=== PATIENT | female | born 1945 | race Caucasian/White ===

== ENCOUNTER → 2016-05-22 | Outpatient (CLI) | payer MEDICARE, OTHER ==
--- NOTE | 2016-05-23 11:00 | MM ---
Reason for exam: screening (asymptomatic). Last mammogram was performed 1 year and 1 month ago. History: Patient is postmenopausal. MG discontinued stereo core RT of the right breast, September 06, 2013. Benign right mammotome panel of the right breast, May 09, 2011. Benign left mammotome panel of the left breast, February 02, 2009. Benign right mammotome panel of the right breast, May 24, 2008. Benign stereotactic core biopsy of the left breast, January 26, 2004. Core biopsy of the left breast. Took hormonal contraceptives for 3 years beginning at age 23. Physical Findings: A clinical breast exam by your physician is recommended on an annual basis and results should be correlated with mammographic findings. MG 3D Screening Mammo W/Cad Bilateral CC and MLO view(s) were taken. Prior study comparison: April 10, 2015, bilateral MG 3d screening mammo w/cad. April 24, 2014, right breast MG diagnostic mammo RT w CAD. There are scattered fibroglandular densities. Previous mammotome biopsy in the right breast x 2 and in the left breast x 2. There also appear to be a couple clips in the right breast. Scattered calcifications are unchanged. No significant changes when compared with prior studies. ASSESSMENT: Negative, BI-RAD 1 RECOMMENDATION: Routine screening mammogram of both breasts in 1 year.
== END | disposition home or self-care (01) ==
LOC: RADMAMWWP 15:23
PROVIDERS: ATTEND Family Medicine
DX: Z12.31 Encounter for screening mammogram for malignant neoplasm of breast (principal)
CPT/HCPCS: 77063; G0202

== ENCOUNTER → 2016-09-09 | Outpatient (CLI) | payer MEDICARE, OTHER ==
--- NOTE | 2016-09-10 07:59 | US ---
EXAMINATION TYPE: US pelvic complete DATE OF EXAM: 09/09/2016 1:51 PM COMPARISON: NONE CLINICAL HISTORY: N81.4 Uterine Prolapse. Patient has had prolapse for a few months, at time of exam she stated the uterus was prolapsed and she is pending hysterectomy this September TECHNIQUE: TA Date of LMP: 15+ yrs ago EXAM MEASUREMENTS: Uterus: N/A cm Endometrial Stripe: N/A cm Right Ovary: 2.0 x 1.5 x 1.5 cm Left Ovary: N/A cm 1. Uterus: only able to visualize small portion of cervix or lower uterine segment due to prolapse o f uterus 2. Endometrium: unable to visualize 3. Right Ovary: wnl 4. Left Ovary: unable to see due to atrophy and overlying bowel 5. Bilateral Adnexa: wnl 6. Posterior cul-de-sac: wnl There is limitation of evaluation at the lower uterine segment cervical region due to the prolapse. IMPRESSION: 1. Uterine prolapse.
== END | disposition home or self-care (01) ==
LOC: RADUSWWP 13:34
PROVIDERS: ATTEND Obstetrics & Gynecology
DX: N81.4 Uterovaginal prolapse, unspecified (principal)
CPT/HCPCS: 76856

== ENCOUNTER → 2016-10-13 | Outpatient (CLI) | payer MEDICARE, OTHER ==
[2016-10-13 14:26] LABS: Basophils # (A) 0.1 k/uL (0-0.2); Basophils % (A) 1 %; CH 30.2; CHCM 31.9; Eosinophils # (A) 0.6 k/uL (0-0.7); Eosinophils % (A) 8 %; HCT 40.3 % (34.0-46.0); HDW 2.27; HGB 12.8 gm/dL (11.4-16.0); Luc # (Auto) 0.27; Luc % (Auto) 4; Lymphocytes # (A) 1.9 k/uL (1.0-4.8); Lymphocytes % (A) 24 %; MCH 30.3 pg (25.0-35.0); MCHC 31.8 g/dL (31.0-37.0); MCV 95.3 fL (80.0-100.0); Mean Platelet Volume 7.4; Monocytes # (A) 0.6 k/uL (0-1.0); Monocytes % (A) 8 %; Neutrophils # (A) 4.3 k/uL (1.3-7.7); Neutrophils % (A) 56 %; RBC 4.22 m/uL (3.80-5.40); WBC 7.7 k/uL (3.8-10.6)
[2016-10-13 14:47] LABS: Anion Gap 11 mmol/L; Blood Urea Nitrogen 20 mg/dL (7-17); Calcium 9.7 mg/dL (8.4-10.2); Carbon Dioxide 27 mmol/L (22-30); Chloride 105 mmol/L (98-107); Glucose 97 mg/dL (74-99); Non-African American GFR(MDRD) >60 (>60 ml/min/1.73 sqM); Potassium 4.8 mmol/L (3.5-5.1); Sodium 143 mmol/L (137-145)
== END | disposition home or self-care (01) ==
LOC: LABPAT 13:47
PROVIDERS: ATTEND Obstetrics & Gynecology
DX: Z01.812 Encounter for preprocedural laboratory examination (principal)
CPT/HCPCS: 80048; 85025; 86850; 86900; 86901

== ENCOUNTER 2016-10-21 05:46 | Day surgery (SDC) | payer MEDICARE, OTHER ==
[2016-10-13 16:43] VITALS: BMI 28.5
[~2016-10-21 05:46] MED LIST: DEXAMETHASONE SOD PHOSPHATE 10 MG/ML 1 ML VIAL IV ONE; HYDROmorphone 1 MG/ML 1 ML SYRINGE IVP PRN; MIDAZOLAM 2 MG/2 ML VIAL IV PRN; ONDANSETRON 4 MG/2 ML VIAL IVP ONE; ceFAZolin 2 GM in SODIUM CHLORIDE 0.9% 100 ML IVPB ONE
[2016-10-21] MEDS: LACTATED RINGERS 1,000 ML IV SCH (06:24)
[2016-10-21] MEDS ORDERED: LIDOCAINE 1% 20 ML VIAL (10MG/ML) FOR IV START INTRADERMA ONE (06:25)
[2016-10-21 06:35] LABS: Glucose,Whole Blood 93 mg/dL (75-99)
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
[2016-10-21] MEDS ORDERED: ePHEDrine 50 MG/ML 1 ML AMP ONE (07:29)
[2016-10-21] MEDS ORDERED: MIDAZOLAM 2 MG/2 ML VIAL ONE (07:29)
[2016-10-21] MEDS ORDERED: MORPHINE SULFATE (PF) 0.3 MG/0.3 ML SYR ONE (07:29)
[2016-10-21] MEDS ORDERED: GLYCOPYRROLATE 0.2 MG/ML 2 ML VIAL ONE (07:29)
[2016-10-21] MEDS ORDERED: PROPOFOL 10 MG/ML 20 ML VIAL IV ONE (07:29)
[2016-10-21] MEDS ORDERED: EPINEPHrine 1 MG/ML 1 ML AMP IV ONE (07:51)
[2016-10-21] MEDS ORDERED: MORPHINE SULFATE 2 MG/ML SYRINGE IVP PRN (08:24)
[2016-10-21] MEDS ORDERED: diphenhydrAMINE 50 MG/ML 1 ML VIAL IVP PRN (08:24)
[2016-10-21] MEDS ORDERED: NALOXONE 0.4 MG/ML 1 ML VIAL IV PRN (08:24)
[2016-10-21] MEDS ORDERED: ONDANSETRON 4 MG/2 ML VIAL IVP PRN (08:24)
[2016-10-21] MEDS ORDERED: KETOROLAC 30 MG/ML 1 ML VIAL IVP PRN ×2 (08:24→08:50)
[2016-10-21] MEDS ORDERED: LACTATED RINGERS 1,000 ML IV ONE (08:30)
[2016-10-21] MEDS ORDERED: Acetaminophen-Codeine 300-30mg TAB PO PRN ×2 (08:50)
--- NOTE | 2016-10-21 09:04 | P.OP ---
Date of Procedure: 10/21/16 Preoperative Diagnosis: Complete vaginal prolapse Postoperative Diagnosis: Same Procedure(s) Performed: Vaginal hysterectomy with anterior repair Implants: Anesthesia: spinal Surgeon: Vipin Valdez [employer] Builder #1: Sly Parra Estimated Blood Loss (ml): 75 IV fluids (ml): 900 Urine output (ml): 500 Pathology: other (Uterus, cervix, vaginal mucosa) Condition: stable Disposition: floor Indications for Procedure: Operative Findings: Complete procidentia Description of Procedure: Patient was taken to the operating suite where a spinal anesthetic was found be adequate. She was prepped and draped in the normal sterile fashion and placed in dorsal lithotomy position. Initially a weighted speculum was inserted into the vagina into lip cervix identified and grasped with single-tooth tenaculum. Dilute epinephrine solution was injected circumferentially around the cervix and a knife was used to incise this tissue. Blunt dissection the vaginal close off of the cervix was then performed. Once completed Anson was used to clamp the uterosacral/cardinal ligaments bilaterally. Tissues clamped cut and tied and then held. Moving superiorly along the lateral borders the uterus the cardinal ligaments were clamped cut and tied and the remaining vaginal close was continued to be dissected back. Due to how high the bladder was dissected quite a ways with in the cardinal ligament tissues and patient had a cervix that was approximately 4-5 cm long. HEENT easily used to clamp cut and tie all these tissues moving superiorly along the lateral borders of the uterus. Once able we were able to identify the posterior peritoneum was entered sharply with Metzenbaum scissors. This tissue was then extended and the weighted speculum was exchanged for longbilled weighted speculum. Posterior peritoneum was tacked at this point to assist in closure later Continued to dissect tissue superiorly it was noted at this point that there was peritoneum and an enterocele tissue attached to the uterus along the left border of the uterus this had to be bluntly and sharply dissected free from the uterus to be able to get to the fallopian tube area. Broad ligament tissues and size of uterus were then clamped cut and tied through the uterine vascularity up to the body of the uterus. Once able blunt dissection to the anterior peritoneum was made. A 90 angle retractor was then inserted we were then able to visualize the fallopian tube tissues and in 2 bites fallopian tube tube tissues were clamped cut and tied and were held. I was able to manually palpate both the right and left ovaries they palpated small and normal. As a were out of the normal operative field and as high as they were a decision to leave them behind is a were normal was made. Once this was completed and uterus was out we did inspect the sidewalls no bleeding is noted from any of the pedicles. Therefore peritoneum was identified and grasped with an Allis clamp and the peritoneum was closed in a pursestring fashion. Once this process was completed and continuing to see no bleeding 2 Allis clamps were used to clamp at 3-9/10 clock position across the vaginal cuff. Scissor was then used to incise this tissue following dilute epinephrine solution to allow for some hydrodissection. Scissor was then used to move superiorly through the vaginal mucosa by bluntly dissecting the tissues and then incising moving superiorly into the vagina boundaries were marked by Allis clamps once to the apex of the vaginal mucosa need to be repaired which was approximately 1-2 cm from the urethral meatus one last Allis clamp was placed and then using sharp and blunt dissection the bladder was dissected free from the vaginal mucosa for assistance and reapproximation.. Once reapproximated free from both sides 5 Cindy plication sutures were placed to reapproximate the bladder into its normal anatomic position. Excess vaginal mucosa was then trimmed and the vaginal defect was closed in a running locking fashion which also incorporated the original vaginal cuff incision. Once fully closed seeing no bleeding instruments were then removed. There was noted to be some leaking of urine from the urethra meatus. She I will have to have another discussion on potential leaking problems although she has had vaginal leaking and urge incontinence previous. Nova cath was then placed into clear yellow urine is noted. Sponge, lap, needle counts were all correct 2 and patient was then taken to the recovery room in stable and satisfactory condition.
[2016-10-21 09:12] LABS: Glucose,Whole Blood 98 mg/dL (75-99)
[2016-10-21 12:36] LABS: Glucose,Whole Blood 172 mg/dL (75-99)
[2016-10-21 17:32] LABS: Glucose,Whole Blood 166 mg/dL (75-99)
[2016-10-21] MEDS: CARVEDILOL 6.25 MG TAB PO SCH (17:43)
[2016-10-21] MEDS: metFORMIN 500 MG TAB PO SCH (17:43)
[2016-10-21] MEDS: INSULIN LISPRO (humaLOG) 300 UNIT/3 ML VIAL SQ SCH ×2 (17:43→21:03)
[2016-10-21] MEDS: ATORVASTATIN 20 MG TAB PO SCH (20:52)
[2016-10-21] MEDS: LISINOPRIL 20 MG TAB PO SCH (20:52)
[2016-10-21] MEDS: FAMOTIDINE 20 MG TAB PO SCH (20:53)
[2016-10-21] MEDS: INSULIN GLARGINE 100 UNIT/ML 10 ML VIAL SQ SCH (21:03)
[2016-10-21 21:04] LABS: Glucose,Whole Blood 166 mg/dL (75-99)
[2016-10-22 06:18] LABS: CH 29.8; CHCM 32.9; HCT 35.9 % (34.0-46.0); HDW 2.47; HGB 12.2 gm/dL (11.4-16.0); Immature Gran Flag Slight; MCHC 34.1 g/dL (31.0-37.0); Mean Platelet Volume 8.1; RBC 3.95 m/uL (3.80-5.40); RDW 14.5 % (11.5-15.5); WBC 15.2 k/uL (3.8-10.6); WBC (Perox) 16.35
[2016-10-22 07:17] LABS: Add Differential Manual Differential
[2016-10-22 07:22] LABS: Band Neutrophils % 16.5 %; Nucleated Red Blood Cells 0 /100 WBC (0-0); Total Cells Counted 200
[2016-10-22 07:24] LABS: Polychromasia Present
[2016-10-22] MEDS: INSULIN LISPRO (humaLOG) 300 UNIT/3 ML VIAL SQ SCH ×4 (07:30→20:40)
[2016-10-22 07:48] LABS: Glucose,Whole Blood 98 mg/dL (75-99)
[2016-10-22] MEDS: CARVEDILOL 6.25 MG TAB PO SCH ×2 (08:48→19:39)
[2016-10-22] MEDS: metFORMIN 500 MG TAB PO SCH ×2 (08:48→19:39)
--- NOTE | 2016-10-22 08:54 | P.PN ---
Progress Note - Text She has seen and evaluated postop day 1. Overall she appears comfortable and appears to be doing well postoperatively. Last night while she was trying to ablate she was very dizzy and she has not tried to be up this morning at. Due to her multiple medical issues I would like to keep her for 1 more day following cardiology and medicine to fully tweaked her medications that there optimized when she goes home. Her pain is well-controlled with medications were using at this time. All the questions are answered for her at this time. She is able to void. She has not passed flatus. On physical exam currently her heart is regular in her lungs are clear. Abdomen is soft and nontender positive bowel sounds are noted. Extremities are without pain. No bleeding is noted from the vagina. Assessment postop day 1. Plan continue current care.
--- NOTE | 2016-10-22 09:32 | P.PN ---
Progress Note - Text 0705 Anesthesia POD 1. Patient is status post vaginal hysterectomy with anterior repair under spinal anesthesia with intra-thecal preservative free morphine 300 g. Minimal pruritus, good post-op analgesia, and headache or other complications.
[2016-10-22] MEDS: ASPIRIN 81 MG CHEW PO SCH (10:13)
[2016-10-22] MEDS: LINAGLIPTIN 5 MG TABLET PO SCH (10:13)
[2016-10-22] MEDS: FAMOTIDINE 20 MG TAB PO SCH (10:13)
[2016-10-22] MEDS: LISINOPRIL 20 MG TAB PO SCH ×2 (10:13→20:41)
[2016-10-22] MEDS: OXYBUTYNIN XL 5 MG TAB.ER.24 PO SCH (10:13)
[2016-10-22 11:51] LABS: Hemoglobin A1C 6.9 % (4.2-6.1)
[2016-10-22 12:38] LABS: Glucose,Whole Blood 129 mg/dL (75-99)
[2016-10-22 17:32] LABS: Glucose,Whole Blood 118 mg/dL (75-99)
[2016-10-22] MEDS: LACTATED RINGERS 1,000 ML IV SCH (20:14)
[2016-10-22] MEDS: INSULIN GLARGINE 100 UNIT/ML 10 ML VIAL SQ SCH (20:40)
[2016-10-22] MEDS: ATORVASTATIN 20 MG TAB PO SCH (20:41)
[2016-10-22 20:59] LABS: Glucose,Whole Blood 141 mg/dL (75-99)
[2016-10-22 21:46] LABS: Glucose,Whole Blood 126 mg/dL (75-99)
[2016-10-23] MEDS: LACTATED RINGERS 1,000 ML IV SCH (04:21)
[2016-10-23 07:31] LABS: Glucose,Whole Blood 82 mg/dL (75-99)
[2016-10-23] MEDS: INSULIN LISPRO (humaLOG) 300 UNIT/3 ML VIAL SQ SCH (07:53)
[2016-10-23 08:32] VITALS: BP 155/73; PULSE 78; RESP 19; TEMP 97.2
[2016-10-23] MEDS ORDERED: FAMOTIDINE 20 MG TAB PO SCH (09:00)
--- NOTE | 2016-10-23 09:07 | P.DS ---
Providers Expected date of discharge: 10/23/16 Attending physician: Vipin Valdez Consults: 10/21/16 08:53 Consult Physician Urgent Consulting Provider: Jass Kirby Consult Reason/Comments: medical management Do you want consulting provider notified?: Yes 10/21/16 08:54 Consult Physician Urgent Consulting Provider: Wang Bautista Consult Reason/Comments: medical management Do you want consulting provider notified?: Yes Primary care physician: Jass [facility] Course: Dolores is doing very well postop day 2. She is involuting, voiding, and she is tolerating her diet. She is passing flatus. Vital signs are stable and afebrile. Heart regular, lungs clear, extremities without pain. She voices no complaints of vaginal bleeding. Her abdomen is soft and she has positive bowel sounds. Assessment postop day 2. Plan discharged home follow up with me in approximately 2 weeks. Discharge instructions were thoroughly reviewed with she and her daughter and all questions are answered for her prior to discharge. She is stable for discharge this time and she'll follow up with her primary care doctor in the next week for reevaluation of sugars and making sure there is no other changes that need to be made. Patient Condition at Discharge: Good Plan - Discharge Summary New Discharge Prescriptions: New Acetaminophen-Codeine 300-30mg [Tylenol #3] 1 tab PO Q4H PRN #30 tablet PRN Reason: Pain Ibuprofen [Motrin] 600 mg PO Q6HR PRN #30 tab PRN Reason: Pain No Action sitaGLIPtin [Januvia] 100 mg PO DAILY Atorvastatin Calcium [Lipitor] 20 mg PO HS Insulin Glargine [Lantus] 24 unit SQ HS Aspirin [Adult Low Dose Aspirin EC] 81 mg PO DAILY Ranitidine HCl 150 mg PO BID Vits A,C,E/Lutein/Minerals [Ocuvite with Lutein Tablet] 1 tab PO BID Nystatin 100,000 Unit/gm Powd [Mycostatin Powder] 1 applic TOPICAL BID PRN PRN Reason: Rash Glycerin/Propylene Glycol [Artificial Tears Drops] 2 drops BOTH EYES DAILY PRN PRN Reason: Dry Eye(S) metFORMIN HCL [Glucophage] 1,000 mg PO BID Tolterodine Tartrate [Detrol LA] 4 mg PO DAILY Carvedilol [Coreg] 6.25 mg PO BID Lisinopril [Zestril] 20 mg PO BID Discharge Medication List Aspirin [Adult Low Dose Aspirin EC] 81 mg PO DAILY 04/16/15 [History] Atorvastatin Calcium [Lipitor] 20 mg PO HS 04/16/15 [History] Insulin Glargine [Lantus] 24 unit SQ HS 04/16/15 [History] sitaGLIPtin [Januvia] 100 mg PO DAILY 04/16/15 [History] Ranitidine HCl 150 mg PO BID 04/18/15 [History] Glycerin/Propylene Glycol [Artificial Tears Drops] 2 drops BOTH EYES DAILY PRN 08/03/15 [History] Nystatin 100,000 Unit/gm Powd [Mycostatin Powder] 1 applic TOPICAL BID PRN 08/02 [History] Vits A,C,E/Lutein/Minerals [Ocuvite with Lutein Tablet] 1 tab PO BID 08/03/15 [ History] metFORMIN HCL [Glucophage] 1,000 mg PO BID 08/03/15 [History] Carvedilol [Coreg] 6.25 mg PO BID 10/13/16 [History] Lisinopril [Zestril] 20 mg PO BID 10/13/16 [History] Tolterodine Tartrate [Detrol LA] 4 mg PO DAILY 10/13/16 [History] Acetaminophen-Codeine 300-30mg [Tylenol #3] 1 tab PO Q4H PRN #30 tablet [Rx] Ibuprofen [Motrin] 600 mg PO Q6HR PRN #30 tab 10/23/16 [Rx]
[2016-10-23] MEDS: metFORMIN 500 MG TAB PO SCH (09:18)
[2016-10-23] MEDS: CARVEDILOL 6.25 MG TAB PO SCH (09:18)
[2016-10-23] MEDS: LISINOPRIL 20 MG TAB PO SCH (09:19)
[2016-10-23] MEDS: ASPIRIN 81 MG CHEW PO SCH (09:19)
[2016-10-23] MEDS: OXYBUTYNIN XL 5 MG TAB.ER.24 PO SCH (09:20)
[2016-10-23] MEDS: LINAGLIPTIN 5 MG TABLET PO SCH (09:21)
--- NOTE | 2016-10-24 21:11 | PN ---
This patient is status post hysterectomy. The patient is doing well. She remains hemodynamically stable. Denies any chest pain or shortness of breath. Patient has intermittent PVCs. Patient has a prior history of aortic valve replacement. Patient is asymptomatic from her PVCs. Her blood pressure is controlled. Blood pressure is not 110/70 mmHg. First and second heart sounds are normal. Lungs are clinically clear to auscultation and percussion. We will continue the current medications. Patient can be discharged home and can follow up with Dr. Nikki Bautista as an outpatient. LEELA
== END 2016-10-23 10:20 | disposition home or self-care (01) ==
LOC: OR 05:46 → EDSTATUS 07:45 → 6PED 08:56 → OR 10-23 10:20
PROVIDERS: ATTEND Obstetrics & Gynecology
DX: N81.4 Uterovaginal prolapse, unspecified (principal); E11.9 Type 2 diabetes mellitus without complications; I10 Essential (primary) hypertension; E78.5 Hyperlipidemia, unspecified; I25.10 Atherosclerotic heart disease of native coronary artery without angina pectoris; E78.00 Pure hypercholesterolemia, unspecified; Z95.2 Presence of prosthetic heart valve; I49.3 Ventricular premature depolarization; K21.9 Gastro-esophageal reflux disease without esophagitis; Z79.84 Long term (current) use of oral hypoglycemic drugs; Z79.82 Long term (current) use of aspirin; Z79.4 Long term (current) use of insulin; Z79.899 Other long term (current) drug therapy; Z88.1 Allergy status to other antibiotic agents
CPT/HCPCS: 88305; 83036; 85025; 88302; 58260; 57240; J2250; J0171; J1100; J0690; J2405; J2274; J2270; J2704; 86850; 86900; 86901; 88307

== ENCOUNTER → 2017-06-18 | Outpatient (CLI) | payer MEDICARE, OTHER ==
--- NOTE | 2017-06-22 07:54 | MM ---
Reason for exam: screening (asymptomatic). Last mammogram was performed 1 year and 1 month ago. History: Patient is postmenopausal. MG discontinued stereo core RT of the right breast, September 06, 2013. Benign right mammotome panel of the right breast, May 09, 2011. Benign left mammotome panel of the left breast, February 02, 2009. Benign right mammotome panel of the right breast, May 24, 2008. Benign stereotactic core biopsy of the left breast, January 26, 2004. Core biopsy of the left breast. Took hormonal contraceptives for 3 years beginning at age 23. Physical Findings: A clinical breast exam by your physician is recommended on an annual basis and results should be correlated with mammographic findings. MG 3D Screening Mammo W/Cad Bilateral CC and MLO view(s) were taken. Prior study comparison: May 22, 2016, bilateral MG 3d screening mammo w/cad. April 10, 2015, bilateral MG 3d screening mammo w/cad. There are scattered fibroglandular densities. No significant changes when compared with prior studies. ASSESSMENT: Benign, BI-RAD 2 RECOMMENDATION: Routine screening mammogram of both breasts in 1 year.
== END | disposition home or self-care (01) ==
LOC: RADMAMWWP 14:16
PROVIDERS: ATTEND Family Medicine
DX: Z12.31 Encounter for screening mammogram for malignant neoplasm of breast (principal)
CPT/HCPCS: 77063; 77067

== ENCOUNTER → 2018-01-14 | Outpatient (CLI) | payer MEDICARE, OTHER ==
--- NOTE | 2018-01-14 11:56 | FL ---
EXAMINATION TYPE: FL barium swallow DATE OF EXAM: 01/14/2018 CLINICAL HISTORY: Dysphagia for one year. Choking sensation of upper throat per patient. TECHNIQUE: A double contrast esophagram is performed utilizing air and barium. A total of 58 second s of fluoroscopic time was utilized during procedure. 55 spot images are saved during procedure. COMPARISON: None FINDINGS: The esophagus shows satisfactory motility and emptying into the stomach. No evidence of fi xed hiatal hernia or stricture noted. Small sliding-type hiatal hernia is visualized towards end of s tudy. No abnormal outpouching or intraluminal mass is identified. No significant gastroesophageal ref lux was seen during real time performance of this study. Incidental metallic cardiac valve and overly ing mediastinal clips are noted. IMPRESSION: Small sliding-type hiatal hernia incidentally visualized. No significant abnormality is seen to account for patient's symptoms of dysphagia.
== END | disposition home or self-care (01) ==
LOC: RADFLWHC 10:50
PROVIDERS: ATTEND Otolaryngology
DX: R13.10 Dysphagia, unspecified (principal)
CPT/HCPCS: 74220

== ENCOUNTER → 2018-09-06 | Outpatient (CLI) | payer MEDICARE, OTHER ==
--- NOTE | 2018-09-07 10:51 | MM ---
Reason for exam: screening (asymptomatic). Last mammogram was performed 1 year and 3 months ago. History: Patient is postmenopausal. MG discontinued stereo core RT of the right breast, September 06, 2013. Benign right mammotome panel of the right breast, May 09, 2011. Benign left mammotome panel of the left breast, February 02, 2009. Benign right mammotome panel of the right breast, May 24, 2008. Benign stereotactic core biopsy of the left breast, January 26, 2004. Core biopsy of the left breast. Took hormonal contraceptives for 3 years beginning at age 23. Physical Findings: A clinical breast exam by your physician is recommended on an annual basis and results should be correlated with mammographic findings. MG 3D Screening Mammo W/Cad Bilateral CC and MLO view(s) were taken. Prior study comparison: June 18, 2017, bilateral MG 3d screening mammo w/cad. May 22, 2016, bilateral MG 3d screening mammo w/cad. There are scattered fibroglandular densities. Previous mammotome biopsy in the right breast x 2 and in the left breast x 2. Stable scattered calcifications including vascular calcifications. No significant changes when compared with prior studies. ASSESSMENT: Benign, BI-RAD 2 RECOMMENDATION: Routine screening mammogram of both breasts in 1 year.
== END | disposition home or self-care (01) ==
LOC: RADMAMWWP 15:02
PROVIDERS: ATTEND Family Medicine
DX: Z12.31 Encounter for screening mammogram for malignant neoplasm of breast (principal)
CPT/HCPCS: 77063; 77067

== ENCOUNTER → 2018-09-14 | Outpatient (CLI) | payer MEDICARE, OTHER ==
--- NOTE | 2018-09-14 15:21 | US ---
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 GLAND SIZE: Right Lobe: 4.6 x 2.2 x 1.6 cm Overall Parenchyma: homogenous Left Lobe: 4.2 x 1.4 x 1.4 cm Overall Parenchyma: homogeneous Isthmus Thickness: 0.4 cm NODULES RIGHT: # of nodules measured on right: 0 LEFT: # of nodules measured on left: 1 1. 0.6 X 0.5 x 0.7 cm anechoic nodule at the mid pole with well-defined margins with peripheral ca lcification. This nodule is wider than tall and shows no intranodular vascularity. Prior size: 0.6 cm Bilateral neck scanned, no evidence of lymphadenopathy. IMPRESSION: Stable calcified subcentimeter left thyroid nodule. No new nodules are seen.
== END | disposition home or self-care (01) ==
LOC: RADUSWWP 14:31
PROVIDERS: ATTEND Family Medicine
DX: E04.1 Nontoxic single thyroid nodule (principal)
CPT/HCPCS: 76536

== ENCOUNTER 2019-03-14 09:34 | Observation (INO) | payer MEDICARE, OTHER ==
[2019-03-14] MEDS ORDERED: SODIUM CHLORIDE 0.9% 1,000 ML IV STA (10:24)
[2019-03-14] MEDS ORDERED: ENALAPRILAT 1.25 MG/ML 1 ML VIAL IVP STA ×2 (10:25→12:36)
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
[2019-03-14 11:03] LABS: Basophils # (A) 0.1 k/uL (0-0.2); Basophils % (A) 1 %; Eosinophils # (A) 0.3 k/uL (0-0.7); Eosinophils % (A) 3 %; HCT 42.5 % (34.0-46.0); HGB 13.8 gm/dL (11.4-16.0); Lymphocytes # (A) 1.6 k/uL (1.0-4.8); Lymphocytes % (A) 16 %; MCHC 32.5 g/dL (31.0-37.0); MCV 95.4 fL (80.0-100.0); Mean Platelet Volume 7.6; Monocytes # (A) 0.7 k/uL (0-1.0); Monocytes % (A) 7 %; Neutrophils # (A) 7.2 k/uL (1.3-7.7); Neutrophils % (A) 72 %; Platelet Count 193 k/uL (150-450); RBC 4.46 m/uL (3.80-5.40); RDW 14.2 % (11.5-15.5)
[2019-03-14 11:09] LABS: Appearance,Urine Cloudy (Clear); Bilirubin,Urine Negative (Negative); Blood,Urine Negative (Negative); Color,Urine Light Yellow; Glucose,Urine (UA) Negative (Negative); Ketones,Urine Negative (Negative); Leukocyte Esterase,Urine Negative (Negative); Nitrite,Urine Negative (Negative); PH, Urine 5.5 (5.0-8.0); Protein,Urine Trace (Negative); Specific Gravity,Urine 1.012 (1.001-1.035); Urobilinogen,Urine <2.0 mg/dL (<2.0)
[2019-03-14 11:15] LABS: RBC,Urine 1 /hpf (0-5); WBC,Urine 1 /hpf (0-5)
[2019-03-14 11:16] LABS: ALT 233 U/L (9-52); AST 141 U/L (14-36); African American GFR (CKD) >90 (>60 ml/min/1.73 sqM); Albumin 4.3 g/dL (3.5-5.0); Alkaline Phosphatase 178 U/L (38-126); Anion Gap 8 mmol/L; Blood Urea Nitrogen 15 mg/dL (7-17); Calcium 9.6 mg/dL (8.4-10.2); Carbon Dioxide 26 mmol/L (22-30); Chloride 109 mmol/L (98-107); Glucose 126 mg/dL (74-99); Non-African American GFR(CKD) 82 (>60 ml/min/1.73 sqM); Potassium 4.6 mmol/L (3.5-5.1); Sodium 143 mmol/L (137-145); Total Bilirubin 1.5 mg/dL (0.2-1.3); Total Protein 7.4 g/dL (6.3-8.2)
[2019-03-14 11:18] LABS: Partial Thromboplastin Time 24.3 sec (22.0-30.0); Prothrombin Time 10.7 sec (9.0-12.0)
--- NOTE | 2019-03-14 11:56 | CT ---
EXAMINATION TYPE: CT brain wo con DATE OF EXAM: 03/14/2019 COMPARISON: CT brain and cervical spine dated 04/16/2015 HISTORY: Vertigo, HTN CT DLP: 1099.4 mGycm Automated exposure control for dose reduction was used. TECHNIQUE: CT scan of the head is performed without contrast. FINDINGS: There is no acute intracranial hemorrhage or midline shift identified. Few dystrophic bas al ganglia calcifications are incidentally seen. There is diffuse ventricular and sulcal prominence c onsistent with diffuse age-related cerebral atrophy. There is low-attenuation in the periventricular white matter consistent with chronic small vessel ischemic change. The globes are intact and the vi sualized sinuses are clear. IMPRESSION: No acute intracranial hemorrhage or midline shift. There is diffuse age-related cerebra l atrophy and chronic small vessel ischemic change noted.
--- NOTE | 2019-03-14 11:57 | XR ---
EXAMINATION TYPE: XR chest 2V DATE OF EXAM: 03/14/2019 COMPARISON: Prior chest x-ray dated 08/15/2015 HISTORY: Hypertension, tachycardia, stroke symptoms TECHNIQUE: Frontal and lateral views of the chest are obtained. FINDINGS: There is no focal air space opacity, pleural effusion, or pneumothorax seen. The cardiac silhouette size is within normal limits. The osseous structures are intact. There are overlying car diac leads. Postop changes are noted to the right chest. There is cardiac valve replacement. IMPRESSION: No acute cardiopulmonary process.
[2019-03-14] MEDS ORDERED: NALOXONE 0.4 MG/ML 1 ML VIAL IV PRN (12:44)
[2019-03-14 14:01] LABS: Glucose,Whole Blood 99 mg/dL (75-99)
[2019-03-14 14:17] VITALS: BMI 28.3
--- NOTE | 2019-03-14 16:34 | US ---
EXAMINATION TYPE: US gallbladder DATE OF EXAM: 03/14/2019 COMPARISON: NONE CLINICAL HISTORY: elevated liver enzymes. Abnormal labs. No pain. NPO. EXAM MEASUREMENTS: Liver Length: 14.9 cm Gallbladder Wall: 0.2 cm CBD: 0.5 cm Right Kidney: 11.1 x 5.2 x 4.9 cm Pancreas: Main pancreatic duct= 1.3 mm. Tail obscured by overlying bowel gas. Liver: Appears coarse in echotexture throughout. Gallbladder: Multiple mobile stones. Evidence for sonographic Mckay's sign: neg CBD: wnl Right Kidney: Multiple cystic appearing lesions visualized. Largest measured, mid lateral - 1.4 x 1 .3 x 1.2 cm IMPRESSION: 1. Cholelithiasis without sonographic evidence of acute cholecystitis. 2. Coarsened echotexture of the hepatic parenchyma is nonspecific but commonly related to hepatic zahra atosis. Correlate with pulmonary function tests.
[2019-03-14] MEDS: ENALAPRILAT 1.25 MG/ML 1 ML VIAL IVP PRN ×2 (16:48→20:06)
[2019-03-14] MEDS: SODIUM CHLORIDE 0.9% 1,000 ML IV SCH (17:19)
[2019-03-14 17:43] LABS: Glucose,Whole Blood 112 mg/dL (75-99)
[2019-03-14] MEDS: CARVEDILOL 6.25 MG TAB PO SCH (18:29)
[2019-03-14] MEDS: metFORMIN 500 MG TAB PO SCH (18:29)
[2019-03-14] MEDS: LISINOPRIL 20 MG TAB PO SCH ×2 (18:29→21:06)
[2019-03-14 21:00] LABS: Glucose,Whole Blood 163 mg/dL (75-99)
[2019-03-14] MEDS: INSULIN ASPART (NovoLOG) 100 UNIT/ML VIAL SQ SCH (21:01)
[2019-03-14] MEDS: ATORVASTATIN 20 MG TAB PO SCH (21:06)
[2019-03-14] MEDS: INSULIN DETEMIR (LEVEMIR) 100 UNIT/ML SYR SQ SCH (21:06)
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
[2019-03-14] MEDS: ENOXAPARIN 40 MG/0.4 ML SYRINGE SQ SCH (22:15)
[2019-03-14] MEDS: amLODIPine 10 MG TAB PO SCH (22:15)
[2019-03-15 06:20] LABS: Albumin 3.8 g/dL (3.5-5.0); Calcium 9.3 mg/dL (8.4-10.2); Potassium 4.3 mmol/L (3.5-5.1); Total Bilirubin 1.6 mg/dL (0.2-1.3); Total Protein 6.8 g/dL (6.3-8.2)
[2019-03-15 06:25] LABS: Glucose,Whole Blood 92 mg/dL (75-99)
[2019-03-15] MEDS: INSULIN ASPART (NovoLOG) 100 UNIT/ML VIAL SQ SCH ×4 (06:27→20:33)
[2019-03-15] MEDS: CARVEDILOL 6.25 MG TAB PO SCH (06:32)
[2019-03-15] MEDS: ASPIRIN 81 MG PO SCH (08:28)
[2019-03-15] MEDS: LISINOPRIL-HCTZ 20-12.5 MG 1 EACH TAB PO SCH ×2 (08:28→20:37)
[2019-03-15] MEDS: ENOXAPARIN 40 MG/0.4 ML SYRINGE SQ SCH (08:28)
[2019-03-15] MEDS: metFORMIN 500 MG TAB PO SCH ×2 (08:29→20:37)
[2019-03-15] MEDS: amLODIPine 10 MG TAB PO SCH (08:29)
[2019-03-15] MEDS: OXYBUTYNIN XL 5 MG TAB.ER.24 PO SCH (08:29)
[2019-03-15] MEDS: LINAGLIPTIN 5 MG TABLET PO SCH (08:29)
[2019-03-15] MEDS: CHOLECALCIFEROL 1,000 UNIT TAB PO SCH (08:29)
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
--- NOTE | 2019-03-15 12:01 | ECHOF ---
Referral Reason:htn MEASUREMENTS -------- HEIGHT: 157.5 cm WEIGHT: 70.3 kg BP: 191/90 RVIDd: 2.6 cm (< 3.3) IVSd: 1.2 cm (0.6 - 1.1) LVIDd: 5.0 cm (3.9 - 5.3) LVPWd: 1.3 cm (0.6 - 1.1) IVSs: 1.3 cm LVIDs: 4.5 cm LVPWs: 1.6 cm LA Diam: 3.8 cm (2.7 - 3.8) LAESV Index (A-L): 24.66 ml/m Ao Diam: 2.5 cm (2.0 - 3.7) AV Cusp: 1.5 cm (1.5 - 2.6) MV EXCURSION: 22.560 mm (> 18.000) MV EF SLOPE: 65 mm/s (70 - 150) EPSS: 1.6 cm MV E Richardson: 0.88 m/s MV DecT: 125 ms MV A Richardson: 1.00 m/s MV E/A Ratio: 0.88 AV maxP.31 mmHg AV meanP.24 mmHg RAP: 5.00 mmHg RVSP: 25.88 mmHg FINDINGS -------- Sinus rhythm. This was a technically good study. The left ventricular size is normal. There is mild concentric left ventricular hypertrophy. Overa ll left ventricular systolic function is mild-moderately impaired with, an EF between 40 - 45 %. Gl obal hypokinesis The right ventricle is normal in size. Normal LA size by volume 22+/-6 ml/m2. The right atrium is normal in size. Interatrial and interventricular septum intact. Peak/mean gradient across the Aortic Valve is 15.31mmHg / 6.24mmHg. Normally functioning bioprosthe tic valve. The mitral valve leaflets are mildly thickened. Mild mitral annular calcification present. Mild m itral regurgitation is present. Mild tricuspid regurgitation present. Right ventricular systolic pressure is normal at < 35 mmHg. Trace/mild (physiologic) pulmonic regurgitation. The aortic root size is normal. Normal inferior vena cava with normal inspiratory collapse consistent with estimated right atrial pre ssure of 5 mmHg. There is no pericardial effusion. CONCLUSIONS -------- 1. Sinus rhythm. 2. This was a technically good study. 3. The left ventricular size is normal. 4. There is mild concentric left ventricular hypertrophy. 5. Global hypokinesis 6. The right ventricle is normal in size. 7. Normal LA size by volume 22+/-6 ml/m2. 8. The right atrium is normal in size. 9. Interatrial and interventricular septum intact. 10. Peak/mean gradient across the Aortic Valve is 15.31mmHg / 6.24mmHg. 11. Normally functioning bioprosthetic valve. 12. The mitral valve leaflets are mildly thickened. 13. Mild mitral annular calcification present. 14. Mild mitral regurgitation is present. 15. Mild tricuspid regurgitation present. 16. Right ventricular systolic pressure is normal at < 35 mmHg. 17. Trace/mild (physiologic) pulmonic regurgitation. 18. The aortic root size is normal. 19. Normal inferior vena cava with normal inspiratory collapse consistent with estimated right atrial pressure of 5 mmHg. 20. There is no pericardial effusion. DEPLOYMENT SPECIALIST: Elsy Le RDCS
[2019-03-15 12:10] LABS: Glucose,Whole Blood 92 mg/dL (75-99)
[2019-03-15 12:48] LABS: Hepatitis A Antibody IgM Non-Reactive (Non-Reactive); Hepatitis B Core IgM Non-Reactive (Non-Reactive); Hepatitis B Surface Antigen Non-Reactive (Non-Reactive); Hepatitis C IgG Antibody Non-Reactive (Non-Reactive)
[2019-03-15] MEDS: SODIUM CHLORIDE 0.9% 1,000 ML IV SCH (13:00)
[2019-03-15] MEDS: CARVEDILOL 12.5 MG TAB PO SCH (17:05)
[2019-03-15 17:07] LABS: Glucose,Whole Blood 109 mg/dL (75-99)
[2019-03-15 20:25] LABS: Glucose,Whole Blood 123 mg/dL (75-99)
[2019-03-15] MEDS: ATORVASTATIN 20 MG TAB PO SCH (20:37)
[2019-03-15] MEDS: INSULIN DETEMIR (LEVEMIR) 100 UNIT/ML SYR SQ SCH (20:37)
--- NOTE | 2019-03-15 22:27 | P.PN ---
Progress Note - Text Progress Note Date: 03/15/19 Chief Complaint: feeling unwell History of presenting complaint: This is a very pleasant 73-year-old patient of Dr. Kirby. Chronic stable medical conditions include diabetes mellitus type 2, GERD, hyperlipidemia, peripheral neuropathy, arthritis. For last 2 or 3 days patient not been feeling well. Has been feeling dizzy for one day. No chest pain no palpitation. Patient works in the [employer] and decided to leave work and go to the urgent care. Patient was discovered to have a blood pressure of 230/110. Sent down to the ER. Patient has not been steady of her medications. No new medications. Just feeling unwell. She was given IV Vasotec 1.25 mg ER. Patient does follow with Dr. 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 Has had a aortic valve replacement in the past. Admitted with hypertensive urgency. Today-feeling better. Blood pressure is better controlled. Retired. Has been out of bed. Review of systems: Was done for constitutional, cardiovascular, GI, pulmonary. relevant finding as above Active Medications Amlodipine Besylate (Norvasc) 10 mg PO DAILY [facility] Last Admin: 03/15/19 08:29 Dose: 10 mg Documented by: Aspirin (Aspirin) 81 mg PO DAILY [facility] Last Admin: 03/15/19 08:28 Dose: 81 mg Documented by: Atorvastatin Calcium (Lipitor) 20 mg PO HS [facility] Last Admin: 03/15/19 20:37 Dose: 20 mg Documented by: Carvedilol (Coreg) 12.5 mg PO AC-BID [facility] Last Admin: 03/15/19 17:05 Dose: 12.5 mg Documented by: Cholecalciferol (Vitamin D3 (25 Mcg = 1000 Iu)) 1,000 unit PO DAILY [facility] Last Admin: 03/15/19 08:29 Dose: 1,000 unit Documented by: Enalaprilat (Vasotec) 1.25 mg IVP Q4HR PRN PRN Reason: Blood Pressure - High Last Admin: 03/14/19 20:06 Dose: 1.25 mg Documented by: Enoxaparin Sodium (Lovenox) 40 mg SQ DAILY [facility] Last Admin: 03/15/19 08:28 Dose: 40 mg Documented by: Lisinopril/HCTZ (Zestoretic 20-12.5) 1 each PO BID [facility] Last Admin: 03/15/19 20:37 Dose: 1 each Documented by: Sodium Chloride (Saline 0.9%) 1,000 mls @ 10 mls/hr IV .Q24H [facility] Last Admin: 03/15/19 13:00 Dose: Not Given Documented by: Insulin Aspart (Novolog) 0 unit SQ ACHS [facility]; Protocol Last Admin: 03/15/19 20:33 Dose: Not Given Documented by: Insulin Detemir (Levemir) 24 unit SQ HS [facility] Last Admin: 03/15/19 20:37 Dose: 24 unit Documented by: Linagliptin (Tradjenta) 5 mg PO DAILY [facility] Last Admin: 03/15/19 08:29 Dose: 5 mg Documented by: Metformin HCl (Glucophage) 1,000 mg PO BID [facility] Last Admin: 03/15/19 20:37 Dose: 1,000 mg Documented by: Naloxone HCl (Narcan) 0.2 mg IV Q2M PRN PRN Reason: Opioid Reversal Oxybutynin Chloride (Ditropan Xl) 10 mg PO DAILY [facility] Last Admin: 03/15/19 08:29 Dose: 10 mg Documented by: Physical examination: VITAL SIGNS: 98.2, 69, 18, 05/11/1979, 94% room air GENERAL: [Sitting on bed,. We'll comfortable EYES: Pupils equal. Conjunctiva normal. HEENT: External appearance of nose and ears normal, oral cavity grossly normal. NECK: JVD not raised; masses not palpable. HEART: First and second heart sounds are normal; no edema. LUNGS: Respiratory rate normal; clear to auscultation. ABDOMEN: Soft, nontender, liver spleen not palpable, no masses palpable. PSYCH: Alert and oriented x3; mood and affect slightly anxiousl. MUSCULOSKELETAL: Evidence of OA especially in the hands INVESTIGATIONS, reviewed in the clinical context: White count and hemoglobin 13.8 platelets 193 progression 4.6 creatinine 0.74 Total bilirubin 1.5 AST 141 ALT 233 alkaline phosphatase 178 UA trace protein Ultrasound gallbladder-gallstones Liver possible hepatic steatosis EKG tracing personally reviewed by me-evidence of LVH with a strain Chest x-ray film personally reviewed by me-lung conley clear, warm and cardiomegaly Assessment: -Essential hypertension urgency with a feeling of unwell. No chest pain no headache. With a systolic blood pressure over 200. -Diabetes mellitus type 2 -GERD -Hyperlipidemia -Diabetic peripheral neuropathy -Primary osteoarthritis Plan: Continue current medication treatment plan. Coreg dose was increased by cardiology. We'll watch for another 24 hours to make sure the blood pressure doesn't go down too much. He remained stable to be discharged home tomorrow. Care discussed with the patient.
[2019-03-16 06:18] LABS: HCT 40.6 % (34.0-46.0); HGB 13.1 gm/dL (11.4-16.0); MCH 30.8 pg (25.0-35.0); MCHC 32.1 g/dL (31.0-37.0); MCV 95.7 fL (80.0-100.0); Mean Platelet Volume 7.6; Platelet Count 161 k/uL (150-450); RBC 4.25 m/uL (3.80-5.40); RDW 14.2 % (11.5-15.5); WBC 11.3 k/uL (3.8-10.6)
[2019-03-16 06:27] LABS: Glucose,Whole Blood 96 mg/dL (75-99)
[2019-03-16] MEDS: INSULIN ASPART (NovoLOG) 100 UNIT/ML VIAL SQ SCH ×2 (06:29→12:18)
[2019-03-16 06:33] LABS: Calcium 9.6 mg/dL (8.4-10.2); Potassium 4.2 mmol/L (3.5-5.1)
[2019-03-16] MEDS: CARVEDILOL 12.5 MG TAB PO SCH (06:34)
[2019-03-16 08:50] VITALS: RESP 18
[2019-03-16] MEDS: LISINOPRIL-HCTZ 20-12.5 MG 1 EACH TAB PO SCH (08:51)
[2019-03-16] MEDS: ENOXAPARIN 40 MG/0.4 ML SYRINGE SQ SCH (08:51)
[2019-03-16] MEDS: metFORMIN 500 MG TAB PO SCH (08:51)
[2019-03-16] MEDS: amLODIPine 10 MG TAB PO SCH (08:51)
[2019-03-16] MEDS: ASPIRIN 81 MG PO SCH (08:51)
[2019-03-16] MEDS: CHOLECALCIFEROL 1,000 UNIT TAB PO SCH (08:52)
[2019-03-16] MEDS: OXYBUTYNIN XL 5 MG TAB.ER.24 PO SCH (08:52)
[2019-03-16] MEDS: LINAGLIPTIN 5 MG TABLET PO SCH (08:52)
[2019-03-16 11:45] VITALS: BP 160/81; PULSE 63; TEMP 98
[2019-03-16] MEDS: SODIUM CHLORIDE 0.9% 1,000 ML IV SCH (11:52)
[2019-03-16 12:12] LABS: Glucose,Whole Blood 192 mg/dL (75-99)
--- NOTE | 2019-03-16 23:09 | P.DS ---
Providers Date of admission: 03/14/19 12:44 Expected date of discharge: 03/16/19 Attending physician: Owen Rasheed Consults: 03/14/19 12:44 Consult Physician Urgent Consulting Provider: Wang Bautista Consult Reason/Comments: Hypertensive urgency Do you want consulting provider notified?: Yes [facility] Course: Chief Complaint: feeling unwell Hospital course: This is a very pleasant 73-year-old patient of Dr. Kirby. Chronic stable medical conditions include diabetes mellitus type 2, GERD, hyperlipidemia, peripheral neuropathy, arthritis. For last 2 or 3 days patient not been feeling well. Has been feeling dizzy for one day. No chest pain no palpitation. Patient works in the [employer] and decided to leave work and go to the urgent care. Patient was discovered to have a blood pressure of 230/110. Sent down to the ER. Patient has not been steady of her medications. No new medications. Just feeling unwell. She was given IV Vasotec 1.25 mg ER. Patient does follow with Dr. 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 Has had a aortic valve replacement in the past. Admitted with hypertensive urgency. Medication adjusted. Doing well. Blood pressure well controlled. Up and about. Hearing Therapy Director: Dr. Ch from cardiology Physical examination: VITAL SIGNS: 98.1, 65, 18, 138/87, 97% room air GENERAL: Sitting up, comfortable EYES: Pupils equal. Conjunctiva normal. HEENT: External appearance of nose and ears normal, oral cavity grossly normal. NECK: JVD not raised; masses not palpable. HEART: First and second heart sounds are normal; no edema. LUNGS: Respiratory rate normal; clear to auscultation. ABDOMEN: Soft, nontender, liver spleen not palpable, no masses palpable. PSYCH: Alert and oriented x3; mood and affect slightly anxiousl. MUSCULOSKELETAL: Evidence of OA especially in the hands INVESTIGATIONS, reviewed in the clinical context: White count and hemoglobin 13.8 platelets 193 progression 4.6 creatinine 0.74 Total bilirubin 1.5 AST 141 ALT 233 alkaline phosphatase 178 UA trace protein Ultrasound gallbladder-gallstones Liver possible hepatic steatosis EKG tracing personally reviewed by me-evidence of LVH with a strain Chest x-ray film personally reviewed by me-lung conley clear, warm and cardiomegaly 2-D echo-EF 40-45% with global hypokinesia Assessment: -Essential hypertension urgency -Chronic congestive heart failure with systolic dysfunction EF 40-45% 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 hypertensive heart disease -Hepatic steatosis -Gallstones asymptomatic -Diabetes mellitus type 2 -GERD -Hyperlipidemia -Diabetic peripheral neuropathy -Primary osteoarthritis Disposition: Home Patient Condition at Discharge: Stable Plan - Discharge Summary Discharge Rx Participant: No New Discharge Prescriptions: New Carvedilol [Coreg*] 12.5 mg PO AC-BID #60 tab amLODIPine [Norvasc] 10 mg PO DAILY #30 tab Lisinopril-Hctz 20-12.5 mg [Zestoretic 20-12.5] 1 each PO BID #60 tab Continue sitaGLIPtin [Januvia] 100 mg PO DAILY Atorvastatin Calcium [Lipitor] 20 mg PO HS Aspirin [Adult Low Dose Aspirin EC] 81 mg PO DAILY metFORMIN HCL [Glucophage] 1,000 mg PO BID Tolterodine Tartrate [Detrol LA] 4 mg PO DAILY Cholecalciferol [Vitamin D3 (25 Mcg = 1000 Iu)] 1,000 unit PO DAILY Insulin Glargine,Hum.rec.anlog [Lantus Solostar] 24 unit SQ HS Discontinued Carvedilol [Coreg] 6.25 mg PO BID Lisinopril [Zestril] 20 mg PO BID Discharge Medication List Aspirin [Adult Low Dose Aspirin EC] 81 mg PO DAILY 04/16/15 [History] Atorvastatin Calcium [Lipitor] 20 mg PO HS 04/16/15 [History] sitaGLIPtin [Januvia] 100 mg PO DAILY 04/16/15 [History] metFORMIN HCL [Glucophage] 1,000 mg PO BID 08/03/15 [History] Tolterodine Tartrate [Detrol LA] 4 mg PO DAILY 10/13/16 [History] Cholecalciferol [Vitamin D3 (25 Mcg = 1000 Iu)] 1,000 unit PO DAILY 03/14/19 [History] Insulin Glargine,Hum.rec.anlog [Lantus Solostar] 24 unit SQ HS 03/14/19 [History] Carvedilol [Coreg*] 12.5 mg PO AC-BID #60 tab 03/16/19 [Rx] Lisinopril-Hctz 20-12.5 mg [Zestoretic 20-12.5] 1 each PO BID #60 tab 03/16/19 [Rx] amLODIPine [Norvasc] 10 mg PO DAILY #30 tab 03/16/19 [Rx] Follow up Appointment(s)/Referral(s): Wang Bautista MD [STAFF PHYSICIAN] - 03/29/19 10:30 am (Thursday with PRIVACY COMPLIANCE MANAGER) Jass Kirby DO [Primary Care Provider] - 04/12/19 8:40 am (Thursday -earliest available appointment) Discharge Disposition: HOME SELF-CARE
== END 2019-03-16 14:06 | disposition home or self-care (01) ==
LOC: EC 09:34 → 3SCARD 12:44
PROVIDERS: ADMIT Hospitalist; ATTEND Hospitalist
DX: I16.0 Hypertensive urgency (principal); E03.9 Hypothyroidism, unspecified; E11.42 Type 2 diabetes mellitus with diabetic polyneuropathy; E78.5 Hyperlipidemia, unspecified; I11.0 Hypertensive heart disease with heart failure; I25.10 Atherosclerotic heart disease of native coronary artery without angina pectoris; I44.7 Left bundle-branch block, unspecified; I50.22 Chronic systolic (congestive) heart failure; K21.9 Gastro-esophageal reflux disease without esophagitis; K76.0 Fatty (change of) liver, not elsewhere classified; K80.20 Calculus of gallbladder without cholecystitis without obstruction; M19.91 Primary osteoarthritis, unspecified site; Z79.4 Long term (current) use of insulin; Z79.82 Long term (current) use of aspirin; Z79.899 Other long term (current) drug therapy; Z80.0 Family history of malignant neoplasm of digestive organs; Z82.49 Family history of ischemic heart disease and other diseases of the circulatory system; Z90.710 Acquired absence of both cervix and uterus; Z95.2 Presence of prosthetic heart valve; Z88.3 Allergy status to other anti-infective agents; Z98.51 Tubal ligation status
CPT/HCPCS: 96376 ×2; 96372 ×2; 96361; 96374; 99285; 36415; 93005; 93306; 80053 ×2; 80048; 80074; 84450; 84460; 84484; 85025; 85027; 85610; 85730; 81001; 71046; 76705; 70450; G0378 ×3; J1650 ×2

== ENCOUNTER 2019-04-10 09:11 | Emergency (ER) | payer MEDICARE, OTHER ==
[2019-04-10 09:16] VITALS: RESP 16; TEMP 97.5
[2019-04-10] MEDS ORDERED: KETOROLAC 30 MG/ML 1 ML VIAL IM STA (09:30)
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
--- NOTE | 2019-04-10 09:46 | XR ---
EXAMINATION TYPE: XR knee complete RT , 3 VIEWS DATE OF EXAM ORDERED: 04/10/2019 HISTORY: knee pain. COMPARISON: None. FINDINGS: No fracture, dislocation or knee joint effusion is seen. There is vascular calcification p resent. IMPRESSION: NO ACUTE OSSEOUS LESION.
[2019-04-10 10:39] VITALS: BP 132/76; PULSE 76
== END 2019-04-10 10:20 | disposition home or self-care (01) ==
LOC: EC 09:11
DX: M25.561 Pain in right knee (principal); I25.10 Atherosclerotic heart disease of native coronary artery without angina pectoris; E11.42 Type 2 diabetes mellitus with diabetic polyneuropathy; E03.9 Hypothyroidism, unspecified; I10 Essential (primary) hypertension; E78.5 Hyperlipidemia, unspecified; Z79.82 Long term (current) use of aspirin; Z79.4 Long term (current) use of insulin; Z79.899 Other long term (current) drug therapy; Z88.1 Allergy status to other antibiotic agents; Z95.5 Presence of coronary angioplasty implant and graft; Z95.2 Presence of prosthetic heart valve; Z90.710 Acquired absence of both cervix and uterus
CPT/HCPCS: 73562; 96372; 99283; J1885

== ENCOUNTER → 2019-06-01 | Outpatient (CLI) | payer MEDICARE, OTHER ==
--- NOTE | 2019-06-02 07:35 | US ---
EXAMINATION TYPE: US thyroid st tissue head/neck DATE OF EXAM: 06/01/2019 COMPARISON: 09/14/2018 CLINICAL HISTORY: E04.1 Thyroid Nodule. follow up exam GLAND SIZE: Right Lobe: 4.5 x 1.1 x 2.0 cm Overall Parenchyma: heterogenous Left Lobe: 3.5 x 1.1 x 1.4 cm Overall Parenchyma: heterogeneous Isthmus Thickness: 0.3 cm NODULES RIGHT: # of nodules measured on right: 0 LEFT: # of nodules measured on left: calcification seen, as on previous, at inferior pole. This is similar in size measuring approximately 0.5 cm. ISTHMUS: # of nodules measured in the isthmus: 0 Bilateral neck scanned, no evidence of lymphadenopathy. Thyroid gland is diffusely hypervascular. IMPRESSION: Heterogenous hypervascular thyroid gland. Correlate for thyroiditis with serum laboratory values. Calcified left thyroid nodule is again stable.
== END | disposition home or self-care (01) ==
LOC: RADUSWWP 15:42
PROVIDERS: ATTEND Family Medicine
DX: E07.89 Other specified disorders of thyroid (principal); E04.1 Nontoxic single thyroid nodule
CPT/HCPCS: 76536

== ENCOUNTER 2019-07-02 13:14 | Inpatient (IN) | payer MEDICARE, OTHER ==
[2019-07-02] MEDS ORDERED: NITROGLYCERIN OINT 1 INCH/GM PACKET TOPICAL STA (13:32)
[2019-07-02] MEDS ORDERED: MORPHINE SULFATE 2 MG/ML SYRINGE IVP STA (13:32)
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
[2019-07-02 13:51] LABS: Basophils % (A) 0 %; Eosinophils # (A) 0.6 k/uL (0-0.7); Eosinophils % (A) 5 %; HCT 35.1 % (34.0-46.0); HGB 11.5 gm/dL (11.4-16.0); Lymphocytes # (A) 1.6 k/uL (1.0-4.8); Lymphocytes % (A) 15 %; MCH 30.8 pg (25.0-35.0); MCHC 32.7 g/dL (31.0-37.0); MCV 94.2 fL (80.0-100.0); Mean Platelet Volume 8.5; Monocytes # (A) 0.6 k/uL (0-1.0); Monocytes % (A) 6 %; Neutrophils # (A) 7.7 k/uL (1.3-7.7); Neutrophils % (A) 72 %; Platelet Count 217 k/uL (150-450); RBC 3.73 m/uL (3.80-5.40); RDW 14.4 % (11.5-15.5); WBC 10.7 k/uL (3.8-10.6)
[2019-07-02 14:05] LABS: D-Dimer 0.54 mg/L FEU (<0.60); INR 1.1 (<1.2); Prothrombin Time 10.9 sec (9.0-12.0)
--- NOTE | 2019-07-02 14:08 | XR ---
EXAMINATION TYPE: XR chest 2V DATE OF EXAM: 07/02/2019 COMPARISON: Chest x-ray March 14, 2019 HISTORY: Chest pain. TECHNIQUE: Frontal and lateral views of the chest are obtained. FINDINGS: Overlying EKG leads are seen. There is chronic parenchymal changes without suspicious new focal air space opacity, pleural effusion, or pneumothorax seen. The cardiac silhouette size is with in normal limits. Multilevel spurring in the spine is seen. Osseous structures are demineralized. IMPRESSION: Chronic changes without acute pulmonary process.
[2019-07-02 14:14] LABS: Albumin 4.3 g/dL (3.5-5.0); Calcium 9.5 mg/dL (8.4-10.2); Total Bilirubin 1.8 mg/dL (0.2-1.3); Total Protein 7.3 g/dL (6.3-8.2)
[2019-07-02 14:16] LABS: Partial Thromboplastin Time 20.9 sec (22.0-30.0)
[2019-07-02 14:17] LABS: Potassium 4.9 mmol/L (3.5-5.1)
[2019-07-02 14:19] LABS: Magnesium 1.5 mg/dL (1.6-2.3)
[2019-07-02] MEDS ORDERED: NITROGLYCERIN SL TABS 0.4 MG TAB SUBLINGUAL PRN (14:43)
--- NOTE | 2019-07-02 15:45 | US ---
EXAMINATION TYPE: US gallbladder DATE OF EXAM: 07/02/2019 COMPARISON: US CLINICAL HISTORY: cp, Evaluate gallbladder, liver, and pancreas. EXAM MEASUREMENTS: Liver Length: 12.7 cm Gallbladder Wall: 0.5 cm CBD: 0.6 cm Right Kidney: 11.6 x 5.1 x 4.7 cm Pancreas: limited visualization due to midline bowel gas Liver: wnl Gallbladder: thickened wall, pericholecystic fluid, small stones/sludge. Evidence for sonographic Mckay's sign: No CBD: wnl Right Kidney: cysts noted, largest measures 1.5 x 1.1 x 0.8 cm IMPRESSION: Small amount of pericholecystic fluid. Multiple small gallstones. No dilated ducts. Gallb ladder not dilated.
[2019-07-02 17:30] LABS: Glucose,Whole Blood 113 mg/dL (75-99)
[2019-07-02] MEDS: CARVEDILOL 12.5 MG TAB PO SCH (17:51)
[2019-07-02] MEDS ORDERED: NITROGLYCERIN OINT 1 INCH/GM PACKET TOPICAL SCH (18:00)
[2019-07-02] MEDS: metFORMIN 500 MG TAB PO SCH (18:09)
[2019-07-02] MEDS: LISINOPRIL-HCTZ 20-12.5 MG 1 EACH TAB PO SCH (20:02)
[2019-07-02 20:28] LABS: Glucose,Whole Blood 192 mg/dL (75-99)
[2019-07-02] MEDS ORDERED: INSULIN ASPART (NovoLOG) 100 UNIT/ML VIAL SQ SCH (21:00)
[2019-07-02] MEDS: INSULIN ASPART (NovoLOG) 100 UNIT/ML VIAL SQ SCH (22:00)
[2019-07-02] MEDS: INSULIN DETEMIR (LEVEMIR) 100 UNIT/ML SYR SQ SCH (22:02)
--- NOTE | 2019-07-02 23:41 | CONS ---
CONSULTATION Mrs. Guzman is a 74-year-old female with status post aortic valve replacement, history of mild to moderate coronary artery disease, who presented to the emergency room with symptoms of abdominal and chest discomfort. She has been followed by Dr. Bautista on a regular basis and had a stress test according to her recently that showed no evidence of inducible ischemia. She is average in exercise tolerance. No change. She has no associated chest discomfort. She had mild dyspnea on exertion. The discomfort yesterday radiated to the back. In the emergency room, she was noted to have an elevation in her liver function tests, as well as elevation of her amylase and lipase. Her total bilirubin was elevated as well. The patient denies any nausea or vomiting. She denies any diarrhea or GI bleeding. Her coronary risk factors are remarkable for diabetes, hypertension, and hyperlipidemia. She is a nonsmoker. MEDICATIONS: Include Januvia 100 mg daily, Glucophage 1 g twice a day, Zestoretic 20-12 and half twice a day, insulin, Coreg 12.5 mg twice a day, Lipitor 20 mg daily, aspirin 81 mg daily. REVIEW OF SYSTEMS: Respiratory system: She has dyspnea on exertion. No recent wheezing or cough. GI system: She denies any nausea and vomiting. No GI bleeding. system: No dysuria or hematuria. Nervous system: No stroke or seizure. PHYSICAL EXAMINATION: She is a 74-year-old female, alert, oriented, in no apparent distress. Blood pressure 145/60 with a heart rate in the 70s. HEAD: Normocephalic. Eyes sclerae nonicteric. Neck good upstroke. No bruit. No jugular venous distention. LUNGS: Clear to auscultation. HEART: Regular rhythm S1, S2. No S3 with systolic ejection murmur heard at the base, ejection type. No diastolic murmur. No rub. ABDOMEN: Soft, nontender. Positive bowel sounds. No organomegaly. EXTREMITIES: No edema. Intact distal pulses. LAB DATA: Lab data revealed a total bilirubin of 1.8 and magnesium 1.5. AST of 123, ALT of 36, amylase of 156, lipase of 434. BUN and creatinine 23 and 0.82. Potassium 4.9, hemoglobin of 11.5. EKG revealed a sinus mechanism, borderline left axis deviation and intraventricular conduction delay with no acute ST-segment changes. Her gallbladder ultrasound revealed multiple small gallstones, no dilated duct and some small amount of pericholecystic fluid. Her chest x-ray shows no acute infiltrate. IMPRESSION: 1. Chest discomfort radiating into the back with abnormal liver function tests and normal amylase and lipase consistent with pancreatitis, could be cholelithiasis, pancreatitis with the elevation of bilirubin and the abnormal ultrasound. 2. History of aortic valve replacement, appears to be stable on physical examination. 3. Mild to moderate coronary artery disease. No symptoms to suggest angina pectoris. The patient had a stress test recently that was unremarkable. 4. History of hypertension. 5. Hyperlipidemia. 6. Diabetes mellitus. RECOMMENDATIONS: From the cardiac standpoint, we will obtain repeat echocardiogram. Continue medical regimen. She will need further evaluation regarding the abnormal liver function tests and amylase and lipase. Thank you for this consult. Will follow with you. MMODL / IJN: [id number] /
[2019-07-03 06:40] LABS: Albumin 3.6 g/dL (3.5-5.0); Calcium 9.4 mg/dL (8.4-10.2); Magnesium 1.4 mg/dL (1.6-2.3); Potassium 4.2 mmol/L (3.5-5.1); Total Protein 6.4 g/dL (6.3-8.2)
[2019-07-03 07:32] LABS: Glucose,Whole Blood 89 mg/dL (75-99)
[2019-07-03] MEDS: INSULIN ASPART (NovoLOG) 100 UNIT/ML VIAL SQ SCH ×4 (08:28→20:50)
[2019-07-03] MEDS ORDERED: Magnesium Replacement Protocol 1 EACH MISC MISCELLANE PRN (08:32)
[2019-07-03] MEDS ORDERED: ASPIRIN 325 MG TAB PO SCH (09:00)
[2019-07-03] MEDS: MAGNESIUM SULFATE-D5W PMX 1 GM in DEXTROSE/WATER 1 100ML.BAG IVPB SCH ×3 (09:36→12:56)
[2019-07-03] MEDS: CYANOCOBALAMIN 500 MCG TAB PO SCH (09:40)
[2019-07-03] MEDS: OXYBUTYNIN 10 MG TAB.ER.24 PO SCH (09:40)
[2019-07-03] MEDS: LISINOPRIL-HCTZ 20-12.5 MG 1 EACH TAB PO SCH ×2 (09:40→20:53)
[2019-07-03] MEDS: metFORMIN 500 MG TAB PO SCH ×2 (09:40→17:29)
[2019-07-03] MEDS: ATORVASTATIN 20 MG TAB PO SCH (09:40)
[2019-07-03] MEDS: LINAGLIPTIN 5 MG TABLET PO SCH (09:40)
[2019-07-03] MEDS: CARVEDILOL 12.5 MG TAB PO SCH ×2 (09:40→17:29)
[2019-07-03] MEDS: ASPIRIN 81 MG PO SCH (09:40)
[2019-07-03 12:36] LABS: Glucose,Whole Blood 100 mg/dL (75-99)
--- NOTE | 2019-07-03 13:22 | P.PN ---
Subjective Progress Note Date: 07/03/19 This is a pleasant 74-year-old female patient status post aortic valve replacement, history of mild to moderate CAD. Presented to the emergency department with symptoms of abdominal and chest discomfort. She follows with Dr. ESTEPHANIA Bautista in the office and had a recent stress test which was normal according to the patient. Patient was found to have elevated liver enzymes as well as elevated amylase and lipase and total bilirubin. Ultrasound of the gallbladder showed multiple small gallstones, no dilated duct and some small amount of pericholecystic fluid. Upon examination this morning, patient is res ting comfortably in bed. She denies further complaints of chest or abdominal discomfort at this time. Repeat labs this morning show further elevation of the total total bilirubin with an AST of 547 and ALT of 301. Cardiac enzymes have been negative. Dr. Welsh has been consulted. Objective - Vital Signs Vital signs: Vital Signs Temp 97.8 F 07/03/19 04:00 Pulse 63 07/03/19 04:00 Resp 15 07/03/19 04:00 BP 125/68 07/03/19 04:00 Pulse Ox 97 07/03/19 10:30 Intake & Output 07/02/19 07/03/19 07/03/19 17:59 06:59 18:59 Intake Total 420 Balance 420 Weight Intake: Oral 420 Other: # Voids - Exam PHYSICAL EXAMINATION: HEENT: Head is atraumatic, normocephalic. Pupils equal, round. Neck is supple. There is no elevated jugular venous pressure. HEART EXAMINATION: Heart sounds regular, S1 and S2 with a systolic ejection mur mur at the base. CHEST EXAMINATION: Lungs are clear to auscultation and precussion. No chest wall tenderness is noted on palpation or with deep breathing. ABDOMEN: Soft, nontender. Bowel sounds are heard. No organomegaly noted. EXTREMITIES: 2+ peripheral pulses with no evidence of peripheral edema and no calf tenderness noted. NEUROLOGIC patient is awake, alert and oriented x3. . - Labs CBC & Chem 7: 07/02/19 13:43 07/03/19 05:42 Labs: Abnormal Lab Results - Last 24 Hours (Table) 07/02/19 07/02/19 07/02/19 Range/Units 13:43 13:43 13:54 WBC 10.7 H (3.8-10.6) k/uL RBC 3.73 L (3.80-5.40) m/uL APTT 20.9 L (22.0-30.0) sec Sodium 134 L (137-145) mmol/L BUN 23 H (7-17) mg/dL Glucose 169 H (74-99) mg/dL POC Glucose (mg/dL) (75-99) mg/dL Magnesium 1.5 L (1.6-2.3) mg/dL Total Bilirubin 1.8 H (0.2-1.3) mg/dL AST 123 H (14-36) U/L ALT 36 H (4-34) U/L HDL Cholesterol (40-60) mg/dL Amylase 156 H (30-110) U/L Lipase 434 H (23-300) U/L 07/02/19 07/02/19 07/03/19 Range/Units 17:29 20:24 05:42 WBC (3.8-10.6) k/uL RBC (3.80-5.40) m/uL APTT (22.0-30.0) sec Sodium (137-145) mmol/L BUN 22 H (7-17) mg/dL Glucose (74-99) mg/dL POC Glucose (mg/dL) 113 H 192 H (75-99) mg/dL Magnesium 1.4 L (1.6-2.3) mg/dL Total Bilirubin 2.0 H (0.2-1.3) mg/dL AST 547 H (14-36) U/L ALT 301 H (4-34) U/L HDL Cholesterol 39 L (40-60) mg/dL Amylase (30-110) U/L Lipase (23-300) U/L 07/03/19 Range/Units 12:34 WBC (3.8-10.6) k/uL RBC (3.80-5.40) m/uL APTT (22.0-30.0) sec Sodium (137-145) mmol/L BUN (7-17) mg/dL Glucose (74-99) mg/dL POC Glucose (mg/dL) 100 H (75-99) mg/dL Magnesium (1.6-2.3) mg/dL Total Bilirubin (0.2-1.3) mg/dL AST (14-36) U/L ALT (4-34) U/L HDL Cholesterol (40-60) mg/dL Amylase (30-110) U/L Lipase (23-300) U/L Assessment and Plan Assessment: #1 chest discomfort radiating into the back with abnormal liver functions and amylase and lipase consistent with pancreatitis possible cholelithiasis, surgery has been consulted #2 history of aortic valve replacement #3 mild to moderate CAD, recent negative stress test #4 history of hypertension #5 hyperlipidemia #6 diabetes mellitus Plan: From cardiology's perspective, medications reviewed and we'll continue the same. An acute coronary event has been ruled out. At this time we will follow the patient on an as-needed basis. Please do not hesitate to contact us with questions. 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 Patient was seen and examined.
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
[2019-07-03 14:18] LABS: Basophils # (A) 0.1 k/uL (0-0.2); Basophils % (A) 1 %; Eosinophils # (A) 0.5 k/uL (0-0.7); Eosinophils % (A) 8 %; HCT 35.8 % (34.0-46.0); HGB 11.8 gm/dL (11.4-16.0); Lymphocytes # (A) 1.6 k/uL (1.0-4.8); Lymphocytes % (A) 23 %; MCH 31.2 pg (25.0-35.0); MCHC 32.9 g/dL (31.0-37.0); Mean Platelet Volume 7.9; Monocytes # (A) 0.4 k/uL (0-1.0); Monocytes % (A) 6 %; Neutrophils # (A) 4.2 k/uL (1.3-7.7); Neutrophils % (A) 60 %; Platelet Count 180 k/uL (150-450); RBC 3.77 m/uL (3.80-5.40); RDW 14.4 % (11.5-15.5)
[2019-07-03 14:38] LABS: Calcium 9.8 mg/dL (8.4-10.2); Potassium 4.2 mmol/L (3.5-5.1); Total Bilirubin 2.1 mg/dL (0.2-1.3); Total Protein 6.8 g/dL (6.3-8.2)
[2019-07-03] MEDS: PIPERACILLIN-TAZOBACTAM 3.375 GM in SODIUM CHLORIDE 0.9% 100 ML IVPB SCH ×2 (15:15→20:54)
[2019-07-03 17:26] LABS: Glucose,Whole Blood 151 mg/dL (75-99)
[2019-07-03] MEDS: ENOXAPARIN 40 MG/0.4 ML SYRINGE SQ SCH (17:33)
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
[2019-07-03 20:52] LABS: Glucose,Whole Blood 127 mg/dL (75-99)
[2019-07-03] MEDS: INSULIN DETEMIR (LEVEMIR) 100 UNIT/ML SYR SQ SCH (20:53)
[2019-07-04] MEDS: INSULIN ASPART (NovoLOG) 100 UNIT/ML VIAL SQ SCH ×2 (06:25→12:52)
[2019-07-04 06:26] LABS: Glucose,Whole Blood 91 mg/dL (75-99)
[2019-07-04] MEDS: CARVEDILOL 12.5 MG TAB PO SCH (06:29)
[2019-07-04] MEDS: PIPERACILLIN-TAZOBACTAM 3.375 GM in SODIUM CHLORIDE 0.9% 100 ML IVPB SCH ×2 (06:29→15:56)
[2019-07-04] MEDS: metFORMIN 500 MG TAB PO SCH (06:29)
[2019-07-04 07:00] LABS: Albumin 3.7 g/dL (3.5-5.0); Calcium 9.2 mg/dL (8.4-10.2); Magnesium 1.9 mg/dL (1.6-2.3); Total Bilirubin 1.6 mg/dL (0.2-1.3); Total Protein 6.2 g/dL (6.3-8.2)
[2019-07-04] MEDS: LISINOPRIL-HCTZ 20-12.5 MG 1 EACH TAB PO SCH (08:45)
[2019-07-04] MEDS: ASPIRIN 81 MG PO SCH (08:45)
[2019-07-04] MEDS: ATORVASTATIN 20 MG TAB PO SCH (08:45)
[2019-07-04] MEDS: LINAGLIPTIN 5 MG TABLET PO SCH (08:45)
[2019-07-04] MEDS: ENOXAPARIN 40 MG/0.4 ML SYRINGE SQ SCH (08:45)
[2019-07-04] MEDS: OXYBUTYNIN 10 MG TAB.ER.24 PO SCH (08:45)
[2019-07-04] MEDS: CYANOCOBALAMIN 500 MCG TAB PO SCH (08:45)
--- NOTE | 2019-07-04 10:53 | P.PN ---
<Cande Romero - Last Filed: 07/04/19 10:47> Subjective Progress Note Date: 07/04/19 CHIEF COMPLAINT: Atypical chest pain HISTORY OF PRESENT ILLNESS: Patient examined this morning at the bedside. She denies abdominal pain. Tolerating diet. She reports having Iranian toast for breakfast. Denies nausea or vomiting. Passing flatus. Vital signs stable. Afebrile. Bilirubin 1.6. AST 164. ALT 210. PHYSICAL EXAM: VITALS: Reviewed CONSTITUTIONAL: Well developed and in no acute distress. EYES: Conjuctivae without sclera icterus. Pupils are equally round and reactive to light. Extraocular movements grossly intact. HEAD, EARS, NOSE, THROAT: Moist buccal mucosa. Head is atraumatic, normocephalic. Hears conversational speech. No nasal drainage. NECK: Supple. No JV distention. No thyroidomegaly. RESPIRATORY: Non-labored respirations and equal bilateral excursions. No gross wheezes. CARDIOVASCULAR: Regular rate and rhythm. Palpable 2+ radial pulses. ABDOMEN: Soft. Non-tender. Nondistended. LYMPH: No neck lymphadenopathy. No axillary lymphadenopathy. MUSCULOSKELETAL: Nail and fingers with good capillary refill. SKIN: Warm and well perfused with good skin turgor. NEUROLOGIC: Cranial nerves I through XII grossly intact. No focal or lateralizing signs. PSYCH: Appropriate affect. Alert and oriented to person, place and time. ASSESSMENT: 1. Atypical chest pain 2. Abnormal ultrasound for acute cholecystitis 3. History of aortic valvular replacement PLAN: -Continue diet as tolerated -Obtain HIDA scan per Dr. Welsh -Patient may be discharged per Dr. Welsh. She is to follow up with Dr. Welsh outpatient. Nurse practitioner note has been reviewed by physician. Signing provider agrees with the documented findings, assessment, and plan of care. Objective - Vital Signs Vital signs: Vital Signs Temp 97.5 F L 07/04/19 08:00 Pulse 72 07/04/19 08:00 Resp 16 07/04/19 08:00 BP 128/66 07/04/19 08:00 Pulse Ox 96 07/04/19 08:00 Intake & Output 07/03/19 07/04/19 07/04/19 18:59 06:59 18:59 Intake Total 2620 240 100 Balance 2620 240 100 Weight 65 kg Intake: Intake, IV Titration 400 100 Amount Magnesium Sulfate-D5w Pmx 300 1 gm In Dextrose/Water 1 100ml.bag @ 100 mls/hr IVPB Q1H AMEE Rx#: [id number] Piperacillin-Tazobactam 3 100 100 .375 gm In Sodium Chloride 0.9% 100 ml @ 25 mls/hr IVPB Q8H AMEE Rx#: [id number] Oral 2220 240 Other: # Voids 1 1 1 - Labs CBC & Chem 7: 07/03/19 14:06 07/04/19 06:08 Labs: Abnormal Lab Results - Last 24 Hours (Table) 07/03/19 07/03/19 07/03/19 Range/Units 12:34 14:06 14:06 RBC 3.77 L (3.80-5.40) m/uL BUN 19 H (7-17) mg/dL Glucose 159 H (74-99) mg/dL POC Glucose (mg/dL) 100 H (75-99) mg/dL Total Bilirubin 2.1 H (0.2-1.3) mg/dL AST 347 H (14-36) U/L ALT 265 H (4-34) U/L Total Protein (6.3-8.2) g/dL 07/03/19 07/03/19 07/04/19 Range/Units 17:21 20:50 06:08 RBC (3.80-5.40) m/uL BUN 23 H (7-17) mg/dL Glucose (74-99) mg/dL POC Glucose (mg/dL) 151 H 127 H (75-99) mg/dL Total Bilirubin 1.6 H (0.2-1.3) mg/dL AST 164 H (14-36) U/L ALT 210 H (4-34) U/L Total Protein 6.2 L (6.3-8.2) g/dL <Stacey Welsh N - Last Filed: 07/04/19 21:10> Subjective HIDA scan independently reviewed confirms no acute cholecystitis with functioning gallbladder. Patient stable for discharge with follow up as outpatient. Objective - Vital Signs Vital signs: Vital Signs Temp 97.9 F 07/04/19 11:24 Pulse 57 L 07/04/19 16:00 Resp 14 07/04/19 16:00 BP 156/88 07/04/19 11:24 Pulse Ox 96 07/04/19 08:00 Intake & Output 07/04/19 07/04/19 07/05/19 06:59 18:59 06:59 Intake Total 240 600 Balance 240 600 Weight 65 kg Intake: Intake, IV Titration 200 Amount Piperacillin-Tazobactam 3 200 .375 gm In Sodium Chloride 0.9% 100 ml @ 25 mls/hr IVPB Q8H AMEE Rx#: [id number] Oral 240 400 Other: # Voids 1 3 - Labs CBC & Chem 7: 07/03/19 14:06 07/04/19 06:08 Labs: Abnormal Lab Results - Last 24 Hours (Table) 07/02/19 07/04/19 07/04/19 Range/Units 19:09 06:08 12:49 BUN 23 H (7-17) mg/dL POC Glucose (mg/dL) 114 H (75-99) mg/dL Hemoglobin A1c 7.1 H (4.0-6.0) % Total Bilirubin 1.6 H (0.2-1.3) mg/dL AST 164 H (14-36) U/L ALT 210 H (4-34) U/L Total Protein 6.2 L (6.3-8.2) g/dL
[2019-07-04 11:25] VITALS: BP 156/88; TEMP 97.9
--- NOTE | 2019-07-04 11:27 | ECHOF ---
Referral Reason:avr MEASUREMENTS -------- HEIGHT: 157.5 cm WEIGHT: 64.9 kg BP: 118/65 RVIDd: 3.0 cm (< 3.3) IVSd: 1.0 cm (0.6 - 1.1) LVIDd: 4.7 cm (3.9 - 5.3) LVPWd: 1.3 cm (0.6 - 1.1) IVSs: 1.5 cm LVIDs: 3.4 cm LVPWs: 1.6 cm LA Diam: 3.5 cm (2.7 - 3.8) LAESV Index (A-L): 29.60 ml/m Ao Diam: 2.7 cm (2.0 - 3.7) AV Cusp: 1.8 cm (1.5 - 2.6) MV EXCURSION: 20.651 mm (> 18.000) MV EF SLOPE: 33 mm/s (70 - 150) EPSS: 1.2 cm MV E Richardson: 0.80 m/s MV DecT: 305 ms MV A Richardson: 0.96 m/s MV E/A Ratio: 0.84 AV maxP.80 mmHg AV meanP.16 mmHg RAP: 5.00 mmHg RVSP: 33.98 mmHg TAPSE: 19.18 mm FINDINGS -------- Sinus rhythm. This was a technically good study. The left ventricular size is normal. There is mild concentric left ventricular hypertrophy. Overa ll left ventricular systolic function is normal with, an EF between 55 - 60 %. The right ventricle is normal in size. LA is midly dilated 29-33ml/m2. The right atrium is normal in size. Interatrial and interventricular septum intact. There is mild aortic valve sclerosis. Trace amount of aortic regurgitation. Peak/mean gradient a cross the Aortic Valve is 16.80mmHg / 9.16mmHg. Normally functioning bioprosthetic valve. TAVR pr ocedure done The mitral valve leaflets are mildly thickened. Mild mitral regurgitation is present. Mild tricuspid regurgitation present. There is borderline pulmonary hypertension. The right ventr icular systolic pressure, as measured by Doppler, is 33.98mmHg. Trace/mild (physiologic) pulmonic regurgitation. The aortic root size is normal. Normal inferior vena cava with normal inspiratory collapse consistent with estimated right atrial pre ssure of 5 mmHg. There is no pericardial effusion. CONCLUSIONS -------- 1. Sinus rhythm. 2. This was a technically good study. 3. The left ventricular size is normal. 4. There is mild concentric left ventricular hypertrophy. 5. Overall left ventricular systolic function is normal with, an EF between 55 - 60 %. 6. The right ventricle is normal in size. 7. LA is midly dilated 29-33ml/m2. 8. The right atrium is normal in size. 9. Interatrial and interventricular septum intact. 10. There is mild aortic valve sclerosis. 11. Trace amount of aortic regurgitation. 12. Peak/mean gradient across the Aortic Valve is 16.80mmHg / 9.16mmHg. 13. Normally functioning bioprosthetic valve. 14. TAVR procedure done 15. The mitral valve leaflets are mildly thickened. 16. Mild mitral regurgitation is present. 17. Mild tricuspid regurgitation present. 18. There is borderline pulmonary hypertension. 19. The right ventricular systolic pressure, as measured by Doppler, is 33.98mmHg. 20. Trace/mild (physiologic) pulmonic regurgitation. 21. The aortic root size is normal. 22. Normal inferior vena cava with normal inspiratory collapse consistent with estimated right atrial pressure of 5 mmHg. 23. There is no pericardial effusion. STRAIN TECHNICIAN: Elsy Le RDCS
--- NOTE | 2019-07-04 12:02 | P.PN ---
Subjective Progress Note Date: 07/04/19 This is a pleasant 74-year-old female patient status post aortic valve replacement, history of mild to moderate CAD. Presented to the emergency department with symptoms of abdominal and chest discomfort. She follows with Dr. ESTEPHANIA Bautista in the office and had a recent stress test which was normal according to the patient. Patient was found to have elevated liver enzymes as well as elevated amylase and lipase and total bilirubin. Ultrasound of the gallbladder showed multiple small gallstones, no dilated duct and some small amount of pericholecystic fluid. The patient is scheduled to undergo a HIDA s can. She has been cleared for discharge from surgery perspective. They will further evaluate as an outpatient. MR perspective she may be able to be discharged home today to follow-up with Dr. Justin Bautista in the office post discharge. Objective - Vital Signs Vital signs: Vital Signs Temp 97.9 F 07/04/19 11:24 Pulse 64 07/04/19 11:24 Resp 17 07/04/19 11:24 BP 156/88 07/04/19 11:24 Pulse Ox 96 07/04/19 08:00 Intake & Output 07/03/19 07/04/19 07/04/19 18:59 06:59 18:59 Intake Total 2620 240 100 Balance 2620 240 100 Weight 65 kg Intake: Intake, IV Titration 400 100 Amount Magnesium Sulfate-D5w Pmx 300 1 gm In Dextrose/Water 1 100ml.bag @ 100 mls/hr IVPB Q1H AMEE Rx#: [id number] Piperacillin-Tazobactam 3 100 100 .375 gm In Sodium Chloride 0.9% 100 ml @ 25 mls/hr IVPB Q8H AMEE Rx#: [id number] Oral 2220 240 Other: # Voids 1 1 1 - Exam PHYSICAL EXAMINATION: HEENT: Head is atraumatic, normocephalic. Pupils equal, round. Neck is supple. There is no elevated jugular venous pressure. HEART EXAMINATION: Heart sounds regular, S1 and S2 with a systolic ejection murmur at the base. CHEST EXAMINATION: Lungs are clear to auscultation and precussion. No chest wall tenderness is noted on palpation or with deep breathing. ABDOMEN: Soft, nontender. Bowel sounds are heard. No organomegaly noted. EXTREMITIES: 2+ peripheral pulses with no evidence of peripheral edema and no calf tenderness noted. NEUROLOGIC patient is awake, alert and oriented x3. - Labs CBC & Chem 7: 07/03/19 14:06 07/04/19 06:08 Labs: Abnormal Lab Results - Last 24 Hours (Table) 07/03/19 07/03/19 07/03/19 Range/Units 12:34 14:06 14:06 RBC 3.77 L (3.80-5.40) m/uL BUN 19 H (7-17) mg/dL Glucose 159 H (74-99) mg/dL POC Glucose (mg/dL) 100 H (75-99) mg/dL Total Bilirubin 2.1 H (0.2-1.3) mg/dL AST 347 H (14-36) U/L ALT 265 H (4-34) U/L Total Protein (6.3-8.2) g/dL 07/03/19 07/03/19 07/04/19 Range/Units 17:21 20:50 06:08 RBC (3.80-5.40) m/uL BUN 23 H (7-17) mg/dL Glucose (74-99) mg/dL POC Glucose (mg/dL) 151 H 127 H (75-99) mg/dL Total Bilirubin 1.6 H (0.2-1.3) mg/dL AST 164 H (14-36) U/L ALT 210 H (4-34) U/L Total Protein 6.2 L (6.3-8.2) g/dL Assessment and Plan Plan: Assessment and plan: #1 chest discomfort radiating into the back with abnormal liver functions and amylase and lipase consistent with pancreatitis possible cholelithiasis, surgery has risk requested a HIDA scan, cleared for discharge by them #2 history of aortic valve replacement #3 mild to moderate CAD, recent negative stress test #4 history of hypertension #5 hyperlipidemia #6 diabetes mellitus Plan From cardiology's perspective, we will continue this patient on her current medications. He'll make her a follow-up appointment to see Dr. ESTEPHANIA Bautista in the office post discharge. DNP note has been reviewed, I agree with a documented findings and plan of care. Patient was seen and examined.
[2019-07-04 12:44] VITALS: RESP 14
[2019-07-04 12:45] LABS: Hemoglobin A1C 7.1 % (4.0-6.0)
[2019-07-04 12:51] LABS: Glucose,Whole Blood 114 mg/dL (75-99)
--- NOTE | 2019-07-04 16:22 | NM ---
EXAMINATION TYPE: NM hepatobiliary w CCK DATE OF EXAM: 07/04/2019 COMPARISON: Ultrasound 07/02/2019 HISTORY: 74-year-old female with gallstones and epigastric pain. TECHNIQUE: After the intravenous administration of 5.22 mCi Tc 99m Mebrofenin hepatobiliary scintigra phy is performed. Immediate images post injection. FINDINGS: There is satisfactory initial accumulation of tracer by the liver. The gallbladder is visualized wit hin 12 minutes. The small bowel activity is noted within 16 minutes. At one hour CCK was administer ed, patient was injected with 1.31 mcg of Kinevac, and gallbladder ejection fraction is calculated at 75 %, in the upper limits of the normal range. Therefore there is no scintigraphic evidence of cyst ic or common bile duct obstruction to suggest acute cholecystitis or gallbladder dyskinesia. IMPRESSION: 1. No scintigraphic evidence for acute/chronic cholecystitis or biliary dyskinesia. 2. Gallbladder ejection fraction is upper limits of the normal range at 75%.
[2019-07-04 17:23] VITALS: PULSE 57
--- NOTE | 2019-07-04 17:23 | P.DS ---
Providers Date of admission: 07/04/19 08:17 Expected date of discharge: 07/04/19 Attending physician: Owen Rasheed Consults: 07/02/19 14:43 Consult Physician Urgent Consulting Provider: Wang Bautista Consult Reason/Comments: cp Do you want consulting provider notified?: Yes 07/03/19 08:36 Consult Physician Routine Consulting Provider: Stacey Welsh Consult Reason/Comments: gallstones Do you want consulting provider notified?: Yes Primary care physician: [facility] Course: Chief Complaint: Abdominal pain Chief Complaint: feeling unwell History of presenting complaint: This is a very pleasant 74-year-old patient of Dr. Kirby. Chronic stable medical conditions include diabetes mellitus type 2, GERD, hyperlipidemia, peripheral neuropathy, arthritis. Patient presents with upper abdominal pain going across into the back. No nausea vomiting. No fever no chills. Does a concern in the ER over cardiac involvement has patient was admitted. Patient has known gallstones in the past. Subsequently after admission abdominal pain, resolved. It is felt to be from gallstones. LFTs, bumped up. Patient's presentation was not felt to be cardiac. Today-no further abdominal pain. LFTs are coming on. Had a HIDA scan ordered by surgery. Came back to be negative. Patient's feeling well. Consultation: Dr. Loli Elias from general surgery Dr. Birch from cardiology Physical examination: VITAL SIGNS: 97.9, 64, 17, 156/88, 96% on room air GENERAL: BMI 26.3, sitting up, not in distress. EYES: Pupils equal. Conjunctiva normal. HEENT: External appearance of nose and ears normal, oral cavity grossly normal. NECK: JVD not raised; masses not palpable. HEART: First and second heart sounds are normal; no edema. LUNGS: Respiratory rate normal; clear to auscultation. ABDOMEN: Soft, nontender, liver spleen not palpable, no masses palpable. PSYCH: Alert and oriented x3; mood and affect slightly anxiousl. INVESTIGATIONS, reviewed in the clinical context: Potassium 4, bilirubin 1.6, AST 164, ALT 210 HIDA scan-negative. Previous testing White count 10.7 hemoglobin 11.5 platelets 217 potassium 4.9 creatinine 0.82 Total bilirubin 1.8 AST 123 ALT 36-repeat LFT show bilirubin of 2.0 AST 547 ALT 301 Amylase 156 lipase 434 Assessment: -Symptomatic gallstones with element of mild obstruction with LFTs going up., Now LFTs are coming down -Mild gallstone pancreatitis -Chronic congestive heart failure with systolic dysfunction EF 40-45% 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 hypertensive heart disease -Hepatic steatosis -Diabetes mellitus type 2 -GERD -Hyperlipidemia -Diabetic peripheral neuropathy -Primary osteoarthritis Disposition: Home Patient Condition at Discharge: Stable Plan - Discharge Summary Discharge Rx Participant: No New Discharge Prescriptions: New Amoxicillin/Potassium Clav [Augmentin 875-125 Tablet] 1 tab PO Q12HR #10 tab Continue sitaGLIPtin [Januvia] 100 mg PO DAILY Atorvastatin Calcium [Lipitor] 20 mg PO DAILY Aspirin [Adult Low Dose Aspirin EC] 81 mg PO HS metFORMIN HCL [Glucophage] 1,000 mg PO BID Tolterodine Tartrate [Detrol LA] 4 mg PO DAILY Cholecalciferol [Vitamin D3 (25 Mcg = 1000 Iu)] 2,000 unit PO DAILY Insulin Glargine,Hum.rec.anlog [Lantus Solostar] 24 unit SQ HS Carvedilol [Coreg*] 12.5 mg PO AC-BID #60 tab Multivitamins, Thera [Multivitamin (formulary)] 1 tab PO DAILY Cyanocobalamin (Vitamin B-12) [Vitamin B-12] 1,000 mcg PO DAILY Lisinopril-Hctz 20-12.5 mg [Zestoretic 20-12.5] 1 tab PO BID Discharge Medication List Aspirin [Adult Low Dose Aspirin EC] 81 mg PO HS 04/16/15 [History] Atorvastatin Calcium [Lipitor] 20 mg PO DAILY 04/16/15 [History] sitaGLIPtin [Januvia] 100 mg PO DAILY 04/16/15 [History] metFORMIN HCL [Glucophage] 1,000 mg PO BID 08/03/15 [History] Tolterodine Tartrate [Detrol LA] 4 mg PO DAILY 10/13/16 [History] Cholecalciferol [Vitamin D3 (25 Mcg = 1000 Iu)] 2,000 unit PO DAILY 03/14/19 [History] Insulin Glargine,Hum.rec.anlog [Lantus Solostar] 24 unit SQ HS 03/14/19 [History] Carvedilol [Coreg*] 12.5 mg PO AC-BID #60 tab 03/16/19 [Rx] Cyanocobalamin (Vitamin B-12) [Vitamin B-12] 1,000 mcg PO DAILY 07/02/19 [History] Lisinopril-Hctz 20-12.5 mg [Zestoretic 20-12.5] 1 tab PO BID 07/02/19 [History] Multivitamins, Thera [Multivitamin (formulary)] 1 tab PO DAILY 07/02/19 [History] Amoxicillin/Potassium Clav [Augmentin 875-125 Tablet] 1 tab PO Q12HR #10 tab 07/04/19 [Rx] Follow up Appointment(s)/Referral(s): Wang Bautista MD [STAFF PHYSICIAN] - As Needed Jass Kirby DO [Primary Care Provider] - 07/11/19 2:40 pm Stacey Welsh MD [STAFF PHYSICIAN] - 1 Week () Patient Instructions/Handouts: Cholecystitis (ED), Gallstones (DC), Low Fat Diet (DC)
== END 2019-07-04 17:57 | disposition home or self-care (01) | DRG 444 ==
LOC: EC 13:14 → 3SCARD 14:43 → OBSVTOIN 07-04 08:17
PROVIDERS: ADMIT Hospitalist; ATTEND Hospitalist
DX: K80.21 Calculus of gallbladder without cholecystitis with obstruction (principal); K85.10 Biliary acute pancreatitis without necrosis or infection; I50.22 Chronic systolic (congestive) heart failure; I44.7 Left bundle-branch block, unspecified; I25.10 Atherosclerotic heart disease of native coronary artery without angina pectoris; K76.0 Fatty (change of) liver, not elsewhere classified; K21.9 Gastro-esophageal reflux disease without esophagitis; Z87.440 Personal history of urinary (tract) infections; E11.42 Type 2 diabetes mellitus with diabetic polyneuropathy; E78.5 Hyperlipidemia, unspecified; I11.0 Hypertensive heart disease with heart failure; M19.91 Primary osteoarthritis, unspecified site; Z79.82 Long term (current) use of aspirin; Z79.84 Long term (current) use of oral hypoglycemic drugs; Z79.899 Other long term (current) drug therapy; Z80.0 Family history of malignant neoplasm of digestive organs; Z82.49 Family history of ischemic heart disease and other diseases of the circulatory system; Z82.3 Family history of stroke; Z90.710 Acquired absence of both cervix and uterus; Z95.2 Presence of prosthetic heart valve; Z60.2 Problems related to living alone; Z98.51 Tubal ligation status
CPT/HCPCS: 36415; 71046; 76705; 78227; 80053; 80061; 82150; 83036; 83690; 83735; 84484; 85025; 85379; 85610; 85730; 93306; 99285

== ENCOUNTER → 2019-10-12 | Outpatient (CLI) | payer MEDICARE, OTHER ==
--- NOTE | 2019-10-13 10:42 | MM ---
Reason for exam: screening (asymptomatic). Last mammogram was performed 1 year and 1 month ago. History: Patient is postmenopausal. MG discontinued stereo core RT of the right breast, September 06, 2013. Benign right mammotome panel of the right breast, May 09, 2011. Benign left mammotome panel of the left breast, February 02, 2009. Benign right mammotome panel of the right breast, May 24, 2008. Benign stereotactic core biopsy of the left breast, January 26, 2004. Core biopsy of the left breast. Took hormonal contraceptives for 3 years beginning at age 23. Physical Findings: A clinical breast exam by your physician is recommended on an annual basis and results should be correlated with mammographic findings. MG 3D Screening Mammo W/Cad Bilateral CC and MLO view(s) were taken. Prior study comparison: September 06, 2018, bilateral MG 3d screening mammo w/cad. June 18, 2017, bilateral MG 3d screening mammo w/cad. The breast tissue is heterogeneously dense. This may lower the sensitivity of mammography. Previous mammotome biopsy in the right breast x 3 and in the left breast x 2. Benign vascular and fat necrosis calcifications. No significant changes when compared with prior studies. ASSESSMENT: Benign, BI-RAD 2 RECOMMENDATION: Routine screening mammogram of both breasts in 1 year.
== END | disposition home or self-care (01) ==
LOC: RADMAMWWP 07:01
PROVIDERS: ATTEND Family Medicine
DX: Z12.31 Encounter for screening mammogram for malignant neoplasm of breast (principal)
CPT/HCPCS: 77063; 77067

== ENCOUNTER → 2019-11-30 | Outpatient (CLI) | payer MEDICARE, OTHER ==
--- NOTE | 2019-11-30 09:17 | US ---
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 Thyroid nodules GLAND SIZE: Right Lobe: 4.8 x 2.0 x 1.5 cm Overall Parenchyma: heterogenous Left Lobe: 4.2 x 1.5 x 1.4 cm Overall Parenchyma: heterogeneous Isthmus Thickness: 0.4 cm NODULES RIGHT: # of nodules measured on right: 1 1. 1.3 X 0.6 x 1.1 cm hypoechoic mixed nodule at the upper pole with poorly defined margins. This n odule is wider than tall and shows intranodular vascularity. Prior size: Not previously measured. A subtle similar area may have been present. This appears mor e well-defined on the current exam imaging. 2. 0.2cm calcification inferior pole LEFT: # of nodules measured on left: 0 1. 0.4cm calcification inferior pole ISTHMUS: # of nodules measured in the isthmus: 0 Bilateral neck scanned, no evidence of lymphadenopathy. Heterogeneous gland with ill defined right lobe nodule and bilateral calcifications. IMPRESSION: 1. Right lobe thyroid nodule
== END | disposition home or self-care (01) ==
LOC: RADUSWWP 08:35
PROVIDERS: ATTEND Family Medicine
DX: E04.1 Nontoxic single thyroid nodule (principal)
CPT/HCPCS: 76536

== ENCOUNTER → 2020-09-25 | Outpatient (CLI) | payer MEDICARE, OTHER ==
--- NOTE | 2020-09-25 17:00 | US ---
EXAMINATION TYPE: US thyroid st tissue head/neck DATE OF EXAM: 09/25/2020 COMPARISON: US CLINICAL HISTORY: E04.1 Nontoxic thyroid nodule. GLAND SIZE: Right Lobe: 4.7 x 1.4 x 1.9 cm Overall Parenchyma: homogenous Left Lobe: 4.5 x 1.3 x 1.3 cm Overall Parenchyma: homogeneous Isthmus Thickness: 0.3 cm NODULES RIGHT: # of nodules measured on right: 3 1. 1.6 X 0.9 x 0.5 cm, upper pole, mixed cystic and solid, hypoechoic nodule, which is wider than t all, with ill-defined margins, without echogenic foci. TI-RADS 4 Prior size: 1.3 x 0.6 x 1.1 cm 2. 0.2 X 0.2 x 0.1 cm, lower pole, solid, hyperechoic nodule, which is wider than tall, with ill-de fined margins, and is echogenic focus. This may be a calcification. Prior size: 0.2 cm 3. 0.3 X 0.3 x 0.2 cm, mid pole, spongiform, hypoechoic nodule, which is wider than tall, with ill- defined margins, without echogenic foci. Spongiform nodule. Prior size: not seen LEFT: # of nodules measured on left: 1 1. 0.5 X 0.4 x 0.3 cm, lower pole, solid, hyperechoic nodule, which is wider than tall, with smooth margins, and is echogenic focus. This is likely a calcification. Prior size: 0.4cm ISTHMUS: # of nodules measured in the isthmus: 0 Bilateral neck scanned: superior to right thyroid lymph node is seen = 0.8 x 0.6 x 0.3cm. IMPRESSION: 1. 1.6 cm mixed cystic/solid hypoechoic nodule in the right lobe of the thyroid gland is a TI RADS 4 nodule. This is amenable to ultrasound-guided fine-needle aspiration with thin criteria. This is slig htly larger than prior exam. 2. Bilateral thyroid calcifications. 3. Superior to the right lobe of the thyroid gland there is a lymph node measuring 8 mm. This is like ly reactive. 2017 ACR TI-RADS LEVEL: 4 *Highest TI-RADS level nodule reported
== END | disposition home or self-care (01) ==
LOC: RADUSWWP 15:31
PROVIDERS: ATTEND Family Medicine
DX: E04.1 Nontoxic single thyroid nodule (principal); E04.2 Nontoxic multinodular goiter
CPT/HCPCS: 76536

== ENCOUNTER → 2020-10-17 | Outpatient (CLI) | payer MEDICARE, OTHER ==
--- NOTE | 2020-10-18 10:08 | MM ---
Reason for exam: screening (asymptomatic). Last mammogram was performed 1 year ago. History: Patient is postmenopausal. MG discontinued stereo core RT of the right breast, September 06, 2013. Benign right mammotome panel of the right breast, May 09, 2011. Benign left mammotome panel of the left breast, February 02, 2009. Benign right mammotome panel of the right breast, May 24, 2008. Benign stereotactic core biopsy of the left breast, January 26, 2004. Core biopsy of the left breast. Took hormonal contraceptives for 3 years beginning at age 23. Physical Findings: A clinical breast exam by your physician is recommended on an annual basis and results should be correlated with mammographic findings. MG 3D Screening Mammo W/Cad Bilateral CC and MLO view(s) were taken. Prior study comparison: October 12, 2019, bilateral MG 3d screening mammo w/cad. September 06, 2018, bilateral MG 3d screening mammo w/cad. There are scattered fibroglandular densities. Bilateral biospy clips. ASSESSMENT: Benign, BI-RAD 2 RECOMMENDATION: Routine screening mammogram of both breasts in 1 year.
== END | disposition home or self-care (01) ==
LOC: RADMAMWWP 07:38
PROVIDERS: ATTEND Family Medicine
DX: Z12.31 Encounter for screening mammogram for malignant neoplasm of breast (principal); Z78.0 Asymptomatic menopausal state
CPT/HCPCS: 77063; 77067

== ENCOUNTER → 2021-07-19 | Outpatient (CLI) | payer MEDICARE ==
--- NOTE | 2021-07-21 20:43 | US ---
EXAMINATION TYPE: US thyroid st tissue head/neck DATE OF EXAM: 07/19/2021 COMPARISON: NONE CLINICAL HISTORY: E04.1 SINGLE THYROID NODULE. Thyroid nodule GLAND SIZE: Right Lobe: 4.2 x 2.0 x 1.5 cm Overall Parenchyma: heterogenous Left Lobe: 4.1 x 1.4 x 1.4 cm Overall Parenchyma: heterogeneous Isthmus Thickness: .4 cm NODULES RIGHT: # of nodules measured on right: 2 1. 1.4 X .7 x 1.3 cm, upper , solid or almost completely solid, hypoechoic nodule, which is wider than tall, with ill-defined margins, without echogenic foci. TR 4 Prior size: 1.6 x .9 x .5 cm LEFT: # of nodules measured on left: 1 1. .6 X .5 x .6 cm, lower , , hyperechoic nodule, which is wider than tall, with smooth margins, wi thout echogenic foci. Prior size: .5 x .4 x .3 cm ISTHMUS: # of nodules measured in the isthmus: 0 Bilateral neck scanned, no evidence of lymphadenopathy. IMPRESSION: 1. Moderately suspicious nodule right lobe thyroid. Fine-needle aspiration recommended 2017 ACR TI-RADS LEVEL: TR-RADS 4 - Moderately Suspicious: Follow if > 1 cm, FNA if > 1.5 cm *Highest TI-RADS level nodule reported
== END | disposition home or self-care (01) ==
LOC: RADUSWWP 13:32
PROVIDERS: ATTEND Family Medicine
DX: E04.2 Nontoxic multinodular goiter (principal)
CPT/HCPCS: 76536

== ENCOUNTER → 2022-04-05 | Outpatient (CLI) | payer MEDICARE ==
--- NOTE | 2022-04-07 08:09 | MR ---
EXAMINATION TYPE: MR kidney wo/w con DATE OF EXAM: 04/05/2022 1:18 PM INDICATION: Patient age:Female; 76 years old; Reason for study: N28.1 CYST OF KIDNEY, ACQUIRED;. CYST OF KIDNEY, ACQUIRED COMPARISON: CT scan abdomen from none. TECHNIQUE: Multiplanar multi-sequence imaging was performed without contrast. Post contrast imaging was performed. IV Contrast: 7 cc Gadavist FINDINGS: LOWER CHEST: The heart is mildly enlarged for size. ABDOMEN Liver: Unremarkable. Gallbladder and Bile ducts: Unremarkable. Pancreas: Unremarkable. Spleen: Unremarkable. Adrenal glands: Unremarkable. Kidneys: Right: Right renal cysts which are high T2 low T1 signal measuring up to 2.0 cm. There is a intrinsic high T1 signal cysts measuring 5 mm posteriorly without postcontrast enhancement on subtraction imag ing. No evidence of hydronephrosis. Left: Left renal cysts are high T2 low T1 signal measuring up to 2.4 centers. There is a left intrins ic high T1 signal cysts measuring 5 mm without postcontrast enhancement on subtraction imaging. No ev idence of hydronephrosis. Stomach and Bowel: Unremarkable as visualized. Peritoneum: No evidence of pneumoperitoneum, free fluid, or adenopathy. Vasculature: Unremarkable. No aortic aneurysm. Abdominal wall: Unremarkable. Musculoskeletal: The osseous structures appear intact. IMPRESSION: Bilateral renal cysts consistent with Bosniak type I/II cysts.
== END | disposition home or self-care (01) ==
LOC: RADMRIMAIN 11:42
PROVIDERS: ATTEND Urology
DX: N28.1 Cyst of kidney, acquired (principal)
CPT/HCPCS: 74183; A9585

== ENCOUNTER → 2022-09-05 | Outpatient (CLI) | payer MEDICARE ==
--- NOTE | 2022-09-05 10:09 | US ---
EXAMINATION TYPE: US abdomen complete DATE OF EXAM: 09/05/2022 COMPARISON: US 2019, MR kidney 04/05/2022 CLINICAL INDICATION: Female, 77 years old with history of D69.59 SECONDARY THROMBOCYTOPENIA; Patient states no symptoms TECHNIQUE: Multiple sonographic images of the abdomen are obtained. FINDINGS: EXAM MEASUREMENTS: Liver Length: 13.4 cm Gallbladder Wall: 0.2 cm CBD: 0.5 cm Spleen: 8.8 cm Right Kidney: 11.4 x 5.2 x 5.2 cm Left Kidney: 10.2 x 5.2 x 5.0 cm Pancreas: visualized portions wnl, limited by overlying midline bowel gas Liver: wnl Gallbladder: cholelithiasis Evidence for sonographic Mckay's sign: no CBD: wnl Spleen: visualized portions wnl, limited by overlying bowel gas Right Kidney: multiple anechoic areas with largest measuring 2.2cm lateral mid pole Left Kidney: multiple anechoic areas with largest measuring 1.6cm superior pole Upper IVC: wnl Abd Aorta: wnl The liver is homogenous. The intrahepatic portion of the IVC and proximal abdominal aorta are within normal limits. Cholelithiasis demonstrated. No pericholecystic fluid or wall thickening involving t he gallbladder. Common bile duct is unremarkable. The visualized portions of the pancreas are homoge nous. The spleen is unremarkable. Kidneys are symmetric and free of hydronephrosis. Multiple simple to minimally complex cysts within both kidneys. IMPRESSION: 1. No acute process. 2. Multiple simple to minimally complex renal cysts. 3. Cholelithiasis.
== END | disposition home or self-care (01) ==
LOC: RADUSWWP 07:03
PROVIDERS: ATTEND Internal Medicine Hematology & Oncology
DX: K80.20 Calculus of gallbladder without cholecystitis without obstruction (principal); N28.1 Cyst of kidney, acquired; D69.59 Other secondary thrombocytopenia; M12.9 Arthropathy, unspecified; E11.9 Type 2 diabetes mellitus without complications; I10 Essential (primary) hypertension; I67.89 Other cerebrovascular disease; E78.5 Hyperlipidemia, unspecified
CPT/HCPCS: 76700

== ENCOUNTER 2022-11-17 13:58 | Emergency (ER) | payer MEDICARE ==
[2022-11-17 14:43] VITALS: TEMP 98.4
[2022-11-17] MEDS ORDERED: SODIUM CHLORIDE 0.9% 1,000 ML IV STA (15:13)
[2022-11-17] MEDS ORDERED: MECLIZINE 12.5 MG TAB PO STA (15:13)
[2022-11-17] MEDS ORDERED: METOCLOPRAMIDE 5 MG/ML 2 ML VIAL IVP STA (15:13)
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
[2022-11-17 16:06] LABS: Basophils # (A) 0.1 k/uL (0-0.2); Basophils % (A) 1 %; Eosinophils # (A) 0.4 k/uL (0-0.7); Eosinophils % (A) 4 %; HCT 47.3 % (34.0-46.0); HGB 15.6 gm/dL (11.4-16.0); Lymphocytes # (A) 1.8 k/uL (1.0-4.8); Lymphocytes % (A) 19 %; MCH 32.9 pg (25.0-35.0); MCHC 32.9 g/dL (31.0-37.0); Macrocytosis Slight; Monocytes # (A) 0.8 k/uL (0-1.0); Monocytes % (A) 8 %; Neutrophils # (A) 6.6 k/uL (1.3-7.7); Neutrophils % (A) 68 %; Platelet Count 106 k/uL (150-450); RBC 4.73 m/uL (3.80-5.40); RDW 14.4 % (11.5-15.5); WBC 9.7 k/uL (3.8-10.6)
[2022-11-17 16:08] LABS: African American GFR (CKD) 64 (>60 ml/min/1.73 sqM); Anion Gap 9 mmol/L; Blood Urea Nitrogen 23 mg/dL (7-17); Calcium 9.6 mg/dL (8.4-10.2); Carbon Dioxide 22 mmol/L (22-30); Chloride 109 mmol/L (98-107); Glucose 126 mg/dL (74-99); Non-African American GFR(CKD) 56 (>60 ml/min/1.73 sqM); Sodium 140 mmol/L (137-145)
[2022-11-17] MEDS ORDERED: hydrALAZINE HCL 20 MG/ML 1 ML VIAL IVP STA (16:11)
[2022-11-17 16:25] LABS: Potassium 4.6 mmol/L (3.5-5.1)
[2022-11-17 19:56] VITALS: BP 196/95; PULSE 57; RESP 15
== END 2022-11-17 20:05 ==
LOC: EC 13:58
DX: R42 Dizziness and giddiness (principal); I10 Essential (primary) hypertension; I25.10 Atherosclerotic heart disease of native coronary artery without angina pectoris; E11.9 Type 2 diabetes mellitus without complications; E78.5 Hyperlipidemia, unspecified; Z79.82 Long term (current) use of aspirin; Z79.84 Long term (current) use of oral hypoglycemic drugs; Z79.4 Long term (current) use of insulin; Z79.899 Other long term (current) drug therapy; Z88.8 Allergy status to other drugs, medicaments and biological substances
CPT/HCPCS: 36415; 93005; 80048; 85025; 99284; 96374; 96375 ×2; 96361; J0360; J2765

== ENCOUNTER 2023-04-15 06:55 | Day surgery (SDC) | payer MEDICARE ==
[2023-04-13 13:30] VITALS: BMI 29.2
[~2023-04-15 06:55] MED LIST changes: +ALPRAZolam 0.25 MG TAB PO PRN; +ALPRAZolam 0.5 MG TAB PO PRN; -DEXAMETHASONE SOD PHOSPHATE 10 MG/ML 1 ML VIAL IV ONE; +HEPARIN SODIUM,PORCINE (1 ML) 2,500 UNIT in SODIUM CHLORIDE 0.9% 250 ML IRRIGATION PRN; +HEPARIN SODIUM,PORCINE 10,000 UNIT in SODIUM CHLORIDE 0.9% 1,000 ML IRRIGATION PRN; -HYDROmorphone 1 MG/ML 1 ML SYRINGE IVP PRN; -MIDAZOLAM 2 MG/2 ML VIAL IV PRN; +NITROGLYCERIN SL TABS 0.4 MG TAB SUBLINGUAL PRN; -ONDANSETRON 4 MG/2 ML VIAL IVP ONE; +SODIUM CHLORIDE 0.9% 1,000 ML in EMPTY BAG 1 BAG IV SCH; -ceFAZolin 2 GM in SODIUM CHLORIDE 0.9% 100 ML IVPB ONE
[2023-04-15] MEDS ORDERED: ASPIRIN 325 MG TAB PO ONE (07:00)
[2023-04-15] MEDS ORDERED: SODIUM CHLORIDE 0.9% 1,000 ML IV ONE (07:40)
[2023-04-15 07:54] LABS: Glucose,Whole Blood 145 mg/dL (70-110)
[2023-04-15 08:25] VITALS: RESP 16; TEMP 97.6
[2023-04-15] MEDS ORDERED: VERAPAMIL 2.5 MG/ML 2 ML AMP ONE (08:49)
[2023-04-15] MEDS ORDERED: HEPARIN SODIUM 1,000 UN/ML (10ML VL) ONE (08:56)
[2023-04-15] MEDS ORDERED: MIDAZOLAM 2 MG/2 ML VIAL IVP ONE ×2 (09:16→12:13)
[2023-04-15] MEDS ORDERED: LIDOCAINE 1% INJ 10MG/ML (20 ML MDV) SQ ONE (09:24)
[2023-04-15] MEDS ORDERED: VERAPAMIL SYRINGE (5 MG/10 ML) INTRAARTER ONE (09:27)
[2023-04-15] MEDS ORDERED: HEPARIN SODIUM 1,000 UN/ML (10ML VL) IV ONE (09:30)
[2023-04-15] MEDS ORDERED: IOPAMIDOL-370 100ML BTL INJ ONE (09:51)
[2023-04-15] MEDS ORDERED: SODIUM CHLORIDE 0.9% 1,000 ML IV SCH (10:00)
[2023-04-15] MEDS ORDERED: fentaNYL (PF) 50 MCG/ML 2 ML AMP ONE (12:04)
[2023-04-15] MEDS ORDERED: IV FLUID CONTINUATION 1,000 ML IV ONE (12:06)
[2023-04-15] MEDS ORDERED: BENZOCAINE SPRAY 1 CAN MUCOUS MEM ONE (12:09)
[2023-04-15] MEDS ORDERED: fentaNYL (PF) 50 MCG/ML 2 ML AMP IVP ONE (12:13)
--- NOTE | 2023-04-15 12:31 | CC ---
CARDIAC CATHETERIZATION REPORT PROCEDURE: Coronary angiography. PERFORMED BY: Dr. Clarisse Bautista. ANESTHESIA: Moderate conscious sedation time was 17 minutes. Patient was administered Versed. Oxygen saturation, hemodynamics, and EKG were monitored closely. CLINICAL INFORMATION: Ms. Dolores Guzman is a 77-year-old lady with a known history of type 2 diabetes, hypertension, hyperlipidemia, who also underwent aortic valve replacement for severe stenosis by a minimally invasive approach in 2015 at [facility]. She has had degenerative changes of this Trifecta #23 valve and has developed worsening aortic stenosis with shortness of breath and some decrease in LV function. She had about a 50% to 60% mid LAD lesion at that time, which also had some bridging. 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 In view of her progression of degenerative changes of the aortic valve with severe stenosis, she was advised coronary angiography and also transesophageal echo, brought in for the procedure electively after due discussion regarding risks, benefits, and options. PROCEDURE NOTE: Under local anesthesia and strict aseptic precautions, a 6-Turkmen sheath was placed in the right radial artery. Using a JL3.5 and JR4 catheters, I performed coronary angiography. I did not cross the aortic valve. Sheath was taken out and TR band applied as per protocol. Saturation in the fingers of the right hand of more than 93%. The patient tolerated procedure well without complication. She will have a transesophageal echo today and we will then make a definitive decision. CORONARY ANGIOGRAPHY FINDINGS: Right coronary artery, technically this is a dominant vessel, has no significant disease in the proximal portion. There is mild irregularity in the midportion of about 30% to 35% in the mid segment. It gives off 2 acute marginal branches and distally, divides into a PDA and PLV. There are some collaterals supplying the distal septal branches off the LAD. The LAD septal branch is occluded chronically for the last 10 years and there are collaterals going to the septal branch from the PLV branch of RCA. RCA has minor irregularities and no more than 35% mid lesion. Left main coronary artery, short patent vessel, free of significant disease. Bifurcates into LAD and circumflex. Left anterior descending coronary artery is a fair caliber vessel. In the midportion, there is an area of about 50% to 60% narrowing, appears to be more or less of a bridging type narrowing, no different from what it was seen before in 2016. There is a possibility of some bridging noted, which is best seen in the caudal view. The lesion is about 50% to 60% in the mid LAD after the septal branch. The septal branch is totally occluded and has collaterals coming from the right coronary artery. The distal LAD has minor irregularities. No significant disease. LAD supplies a significant amount of myocardium. Left posterior circumflex coronary artery, technically nondominant or codominant vessel, gives off 2 obtuse marginal branches and distally gives off a large obtuse marginal that divides into 2 branches, supplies a sizable amount of myocardium. There is AV groove branch in the left atrial circumflex branch. No significant disease in the circumflex system. FINAL IMPRESSION: 1. This patient has a probably codominant system. 2. I did not check LV pressures. The aortic valve was not crossed. 3. There is about 60% LAD lesion with some bridging best seen in the caudal projection. The rest of the LAD has no other significant disease. Circumflex has no significant disease, codominant system. RCA has about a 35% mid lesion. RECOMMENDATIONS: From a coronary standpoint, no aggressive intervention is necessary. The appearance of the mid LAD lesion is unchanged from 2015. She will have transesophageal echo and then we will make a determination if she will need an aortic valve replacement and if so, by what approach, probably surgical approach since patient has a Trifecta aortic valve. We will await the results of transesophageal echo. Discussed my thoughts in detail with the patient and her daughter. She will be discharged later on today and surgery for the aortic valve will be performed electively. This will be after review by the Structural Heart Team. MMODL / IJN: [id number] /
[2023-04-15 13:42] VITALS: BP 147/78; PULSE 64
--- NOTE | 2023-04-16 13:24 | P.PCN ---
Date of Procedure: 04/16/23 Operative Findings: TRANSESOPHAGEAL ECHOCARDIOGRAM GIZZARD PULLER: MAGO FRANCISCO MD, RPVI INDICATION: Aortic stenosis SEDATION: Conscious sedation COMPLICATION: None LEVEL OF SEDATION Moderate to sedation length of 15 minutes PROCEDURE DESCRIPTION: After obtaining an informed consent, the patient was brought to transesophageal echocardiogram room. Pulse oximetry and heart monitors were attached to the patient. The patient throat was sprayed using lidocaine. The patient was turned into left lateral position. After that a bite guard was placed. After an appropriate conscious sedation was initiated, the transesophageal echocardiogram was advanced through a bite guard into the mid esophagus. A 2-D echocardiogram images, color Doppler images, continuous wave images, pulse-wave images, of various cardiac structure were performed. After that the transesophageal echocardiogram probe was advanced into the stomach and fixed to obtain transgastric view was. The probe was brought into the mid esophagus. Inter-atrial septum was interrogated using 2D images, color Doppler images, and then contrast study. After that transesophageal echocardiogram was withdrawn out and upon withdrawing the descending thoracic aorta all the way up to the arch was evaluated.] CONCLUSION: 1. Normal LV systolic function. The ejection fraction appears to be in the range of 55-60% 2. Normal right ventricular dimension and systolic function 3. Bioprosthetic aortic valve with severe aortic stenosis and mean gradient exceeding 42 mmHg 4. [id number] mitral regurgitation 5. No evidence of pericardial effusion
== END 2023-04-15 14:02 | disposition home or self-care (01) ==
LOC: CATHCVL 06:55
PROVIDERS: ATTEND Internal Medicine Interventional Cardiology
DX: I08.0 Rheumatic disorders of both mitral and aortic valves (principal); I25.10 Atherosclerotic heart disease of native coronary artery without angina pectoris; E11.9 Type 2 diabetes mellitus without complications; E78.5 Hyperlipidemia, unspecified; I10 Essential (primary) hypertension; Z95.3 Presence of xenogenic heart valve
CPT/HCPCS: 93312; 93320; 93325; 93454; 99152; C1769 ×2; C1894; J2250; J2001; J3010; J1644; Q9967

== ENCOUNTER → 2023-06-02 | Outpatient (CLI) | payer MEDICARE ==
--- NOTE | 2023-06-02 10:31 | US ---
EXAMINATION TYPE: US abdomen comp/pelvis limited DATE OF EXAM: 06/02/2023 COMPARISON: NONE CLINICAL INDICATION: Female, 77 years old with history of N28.1 CYST OF KIDNEY, ACQUIRED; Renal cysts EXAM MEASUREMENTS: Liver Length: 12.6 cm Gallbladder Wall: 0.2 cm CBD: 0.4 cm Spleen: 8.0 cm Right Kidney: 10.5 x 4.8 x 3.9 cm Left Kidney: 11.0 x 5.4 x 4.2 cm Pancreas: limited evaluation due to overlying bowel gas. visualized portions appear heterogeneous Liver: wnl Gallbladder: stones CBD: wnl Spleen: appears wnl Right Kidney: multiple cystic lesions noted, largest = 2.2 x 2.5 x 1.9cm. dense echogenic focus mid = 0.6cm Left Kidney: multiple cystic lesions noted, largest = 1.7 x 1.7 x 1.9cm Upper IVC: wnl Abd Aorta: no evidence of AAA Bladder: appears wnl Bilateral Jets Seen no IMPRESSION: 1. Cholelithiasis. 2. Renal cystic changes.
== END | disposition home or self-care (01) ==
LOC: RADUSWWP 09:35
PROVIDERS: ATTEND Urology
DX: N28.1 Cyst of kidney, acquired (principal); K80.20 Calculus of gallbladder without cholecystitis without obstruction
CPT/HCPCS: 76700; 76857

== ENCOUNTER → 2024-01-11 | Outpatient (CLI) | payer MEDICARE ==
--- NOTE | 2024-01-12 21:11 | US ---
EXAMINATION TYPE: US arterial LE single level DATE OF EXAM: 01/11/2024 1:29 PM CLINICAL INDICATION: Female, 78 years old with history of I73.9 PERIPHERAL VASCULAR DISEASE; PAD History of: Smoker: N Hypertension: Y Diabetic: Y Hyperlipidemia: Y TIA/CVA: N Previous Vascular Surgery: N CAD: N OK: N Vascular Ulcers: N Claudication: N Gangrene: N Doppler Waveforms: Right: Monophasic Left: Biphasic Right Brachial Pressure: 139 Left Brachial Pressure: 144 Ankle-Brachial Indices: Right: 1.5 Left: 1.1 (Vessel hardening > 1.4; Normal 0.9 - 1.4, Moderate 0.7 - 0.9, Severe 0.5-0.7) VESSEL HARDENING Toe Brachial Indices: Right: cno Left: cno IMPRESSION: 1. Limited examination. 2. Hardening of the arteries. 3. If additional workup for stenosis be of benefit, consider CT runoff. [facility], , 01/12/2024 9:09 PM
== END | disposition home or self-care (01) ==
LOC: RADUSWWP 12:57
PROVIDERS: ATTEND Podiatrist Foot & Ankle Surgery
DX: I73.9 Peripheral vascular disease, unspecified
CPT/HCPCS: 93922

== ENCOUNTER → 2024-02-04 | Outpatient (CLI) | payer MEDICARE, OTHER ==
--- NOTE | 2024-02-04 12:23 | US ---
EXAMINATION TYPE: US thyroid st tissue head/neck DATE OF EXAM: 02/04/2024 COMPARISON: Thyroid ultrasound 01/22/2023, 07/19/2021, 09/25/2020, 11/30/2019 CLINICAL INDICATION: Female, 78 years old with history of E04.1 NONTOXIC SINGLE THYROID NODULE; Patie nt denies any signs, symptoms, or relevant history TECHNIQUE: Grayscale and color Doppler imaging of the thyroid gland. FINDINGS: GLAND SIZE: Right Lobe: 4.6 x 2.1 x 1.5 cm Overall Parenchyma: heterogeneous Left Lobe: 4.4 x 1.7 x 1.4 cm Overall Parenchyma: heterogeneous Isthmus Thickness: 0 cm NODULES RIGHT: # of nodules measured on right: 1 1. 1.5 X 0.7 x 1.5 cm, upper lateral, solid or almost completely solid, hypoechoic nodule, which is wider than tall, with lobulated or irregular margins, without echogenic foci. TR 4. Prior size: 1.2 x 0.7 x 0.6 cm LEFT: # of nodules measured on left: 1 1. 0.8 X 0.5 x 0.5 cm, lower lateral, solid or almost completely solid, hyperechoic nodule, which i s wider than tall, with lobulated or irregular margins, without echogenic foci. TR 4. Prior size: 0.6 x 0.6 x 0.6 cm ISTHMUS: # of nodules measured in the isthmus: 0 Bilateral neck scanned, no evidence of lymphadenopathy. IMPRESSION: 1. Increased size of right thyroid lobe 1.5 cm TR 4 nodule, previously 1.2 cm. Fine needle aspiratio n is recommended. 2. Marginal increase in size of 0.8 cm left thyroid lobe TR 4 nodule, previously 0.6 cm. Attention o n follow-up ultrasound in one year. [facility], , 02/04/2024 12:20 PM
== END | disposition home or self-care (01) ==
LOC: RADUSWWP 11:36
PROVIDERS: ATTEND Family Medicine
DX: E04.1 Nontoxic single thyroid nodule (principal)
CPT/HCPCS: 76536

== ENCOUNTER → 2024-03-23 | Outpatient (CLI) | payer MEDICARE ==
--- NOTE | 2024-03-28 09:14 | MM ---
Reason for Exam: Screening (asymptomatic). Last mammogram was performed 1 year(s) and 2 month(s) ago. Patient History: Menarche at age 11. First Full-Term at age 22. Hysterectomy at age 52. Postmenopausal. Hormonal Contraceptives, starting at age 23 for 3 years. Core Biopsy on the Left side. 05/09/2011, Benign Core Biopsy on the right side. 02/02/2009, Benign Core Biopsy on the left side. 05/24/2008, Benign Core Biopsy on the right side. 01/26/2004, Benign Stereotactic Core Biopsy on the left side. 09/06/2013, MG discontinued stereo core RT on the right side. Risk Values: Elaine 5 year model risk: 2.6%. NCI Lifetime model risk: 5.3%. Prior Study Comparison: 10/17/2020 Bilateral Screening Mammogram, [facility]. 12/18/2021 Bilateral MG 3D screening mammo w/cad, [facility]. 01/22/2023 Bilateral MG 3D screening mammo w/cad, [facility]. Tissue Density: There are scattered areas of fibroglandular density. Findings: Analyzed By CAD. Right breast surgical clips. Right breast biopsy clips. Left breast biopsy clips. Right breast: There is no suspicious group of microcalcifications or new suspicious mass. Benign-appearing calcifications right breast. Left breast: There is no suspicious group of microcalcifications or new suspicious mass. Benign-appearing calcifications left breast. Overall Assessment: Benign, BI-RAD 2 Management: Screening Mammogram of both breasts in [address] [facility] will attempt to contact patient to return for supplemental views and ultrasound if indicated. Patient should continue monthly self-breast exams. A clinical breast exam by your physician is recommended on an annual basis. This exam should not preclude additional follow-up of suspicious palpable abnormalities. Note on Elaine scores and lifetime risk: 1. A Elaine score greater than 3% is considered moderate risk. If this is the case, consider specialist referral to assess eligibility for a risk reducing agent. 2. If overall lifetime risk for the development of breast cancer is 20% or higher, the patient may qualify for future screening with alternating mammogram and breast MRI. [facility], , 03/28/2024 9:11 AM. Electronically signed and approved by: Bill Segundo DO
== END | disposition home or self-care (01) ==
LOC: RADMAMWWP 10:09
PROVIDERS: ATTEND Family Medicine
DX: Z12.31 Encounter for screening mammogram for malignant neoplasm of breast (principal); R92.323 Mammographic fibroglandular density, bilateral breasts; Z78.0 Asymptomatic menopausal state
CPT/HCPCS: 77063; 77067

== ENCOUNTER → 2024-08-02 | Outpatient (CLI) | payer MEDICARE ==
--- NOTE | 2024-08-02 08:05 | US ---
EXAMINATION TYPE: US carotid duplex BILAT DATE OF EXAM: 08/02/2024 COMPARISON: NONE CLINICAL INDICATION: Female, 79 years old with history of R42 Dizziness and giddiness; Intermittent D izziness Additional History: R42* Dizziness TECHNIQUE: Grayscale, color Doppler and spectral Doppler evaluation of the bilateral carotid systems and vertebral arteries. Indirect Doppler criteria was utilized. 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 No evidence of increased velocities Color Doppler imaging shows patency with blood flow throughout the carotid artery. Spectral waveforms are within normal limits. IMPRESSION: 1. 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 Criteria for Assigning % of Stenosis / Diameter reduction (Estimation based on the indirect measurements of the internal carotid artery velocities (ICA PSV). 1. Normal (no stenosis)=ICA PSV < 180 cm/s: ratio < 2.0: ICA EDV<40 cm/s. 2. Less than 50% stenosis=ICA PSV < 180 cm/s: ratio < 2.0: ICA EDV<40 cm/s. 3. 50 to 69% stenosis=ICA PSV of 180 to 230 cm/s: ration 2.0 ? 4.0: ICA EDV 40-100 cm/s. PSV 125-180 cm/sec and ICA/CCA PSV Ratio ? 2.0 is also consistent with 50-69% stenosis 4. Greater than 70% stenosis to near occlusion= ICA PSV > 230 cm/s: ratio > 4.0: ICA EDV > 100 cm/s. 5. Near occlusion= ICA PSV velocities may be low or undetectable: variable ratio and ICA EDV. 6. Total occlusion=unable to detect flow. [facility], , 08/02/2024 8:03 AM
== END | disposition home or self-care (01) ==
LOC: RADUSWWP 07:18
PROVIDERS: ATTEND Family Medicine
DX: I65.23 Occlusion and stenosis of bilateral carotid arteries (principal); R42 Dizziness and giddiness
CPT/HCPCS: 93880